=== PATIENT | male | born 1935 | race Caucasian/White ===

== ENCOUNTER → 2018-02-27 | Outpatient (CLI) | payer MEDICARE, OTHER ==
--- NOTE | 2018-02-27 15:39 | CT ---
EXAMINATION TYPE: CT chest wo con DATE OF EXAM: 02/27/2018 COMPARISON: NONE HISTORY: SOB and diffculty breathing CT DLP: 607 mGycm. Automated Exposure Control for Dose Reduction was Utilized. TECHNIQUE: CT scan of the thorax is performed without IV contrast. FINDINGS: LUNGS: There is changes of COPD. Interlobular septal thickening most noted involving the lung bases c ompatible with chronic interstitial lung disease. No pneumothorax or pleural effusion. No focal pneumonia. There are areas of pleural-based thickening. Less than 5 mm subpleural nodularity appears chronic. MEDIASTINUM: Lack of IV contrast is noted to limit evaluation for mediastinal and especially hilar ad enopathy. There are no definitive greater than 1 cm hilar or mediastinal lymph nodes. No cardiomega ly or pericardial effusion is seen. Coronary artery calcification and atherosclerotic change aorta. OTHER: Nonobstructing 5 mm right renal calculus. Arthropathy of the right sternoclavicular joint. Deg enerative and hypertrophic change of the spine with a mild superior endplate compression deformity in the midthoracic region which appears chronic. Small hiatal hernia noted. There are multiple tiny gal lstones. IMPRESSION: 1. Correlate for COPD and chronic interstitial lung disease such as pulmonary fibrosis. 2. Minimal subsegmental changes superior segment right lower lobe axial image 24. This may be on the basis of chronic inflammatory change rather than alveolitis or pneumonitis correlate clinically.. 3. Cholelithiasis. 4. Small hiatal hernia.
== END | disposition home or self-care (01) ==
LOC: RADCTMAIN 14:47
PROVIDERS: ATTEND Internal Medicine Sleep Medicine
DX: J84.10 Pulmonary fibrosis, unspecified (principal); K44.9 Diaphragmatic hernia without obstruction or gangrene; J44.9 Chronic obstructive pulmonary disease, unspecified; K80.20 Calculus of gallbladder without cholecystitis without obstruction; R91.8 Other nonspecific abnormal finding of lung field
CPT/HCPCS: 71250

== ENCOUNTER → 2019-01-09 | Outpatient (CLI) | payer MEDICARE, OTHER ==
--- NOTE | 2019-01-09 16:42 | CT ---
EXAMINATION TYPE: CT lumbar spine wo con DATE OF EXAM: 01/09/2019 COMPARISON: 05/18/2015 HISTORY: Spinal canal stenosis CT DLP: 1010.6 mGycm CONTRAST: None TECHNIQUE: CT of the lumbar spine is performed on a spiral scan at 3 mm thick sections. Reconstructed images are performed in the coronal and sagittal planes. FINDINGS: T12-L1: No focal disc herniation or significant disc bulge is evident. No spinal canal stenosis or neural foraminal stenosis is present. L1-L2: Mild disc bulging is anterior thecal sac compression. No AP spinal canal stenosis is present. Neural foramen are patent. L2-L3: Mild disc bulge has anterior thecal sac compression. Facet hypertrophy and ligamentum flavum l axity is mild posterior lateral thecal sac compression. Spinal canal stenosis present. Neural foramen may mild narrowing. L3-L4: Vacuum disc phenomenon is present. Broad-based disc bulge has mild anterior thecal sac flatten ing. No AP spinal canal stenosis narrowing may be present due to facet hypertrophy and ligamentum fla vum laxity. Moderate left and moderate to severe right foraminal stenosis may be present with the rad icular symptoms. L4-L5: Disc bulging is present. Facet hypertrophy and ligamentum flavum laxity are present. There florecita ears to be severe spinal canal stenosis. Facet hypertrophy is contributing to lateral recess stenosis . Severe bilateral foraminal stenosis is present. L5-S1: No focal disc herniation or significant disc bulge is evident. No disc bulge is present. No spinal canal stenosis or neural foraminal stenosis is present Vertebral alignment appears normal. Vascular calcifications within the aorta. There may be some minim al fusiform prominence of the distal abdominal aorta measuring 2.1 cm AP. IMPRESSION: 1. Severe spinal canal stenosis, stable from 2015, L4-5 due to disc bulging facet hypertrophy and lig amentum flavum laxity. Lateral recess stenosis is present at this level with facet hypertrophy. Julia inal narrowing is present. 2. Broad-based disc bulge and facet hypertrophy with ligamentum flavum laxity has some mild narrowing through the L3-4 level.
== END | disposition home or self-care (01) ==
LOC: RADCTMAIN 13:27
PROVIDERS: ATTEND Physical Medicine & Rehabilitation
DX: M48.061 Spinal stenosis, lumbar region without neurogenic claudication (principal); M99.73 Connective tissue and disc stenosis of intervertebral foramina of lumbar region; M51.16 Intervertebral disc disorders with radiculopathy, lumbar region; M46.96 Unspecified inflammatory spondylopathy, lumbar region; E78.5 Hyperlipidemia, unspecified; E03.9 Hypothyroidism, unspecified; I10 Essential (primary) hypertension
CPT/HCPCS: 72131

== ENCOUNTER → 2020-10-07 | Outpatient (CLI) | payer MEDICARE, OTHER ==
--- NOTE | 2020-10-08 16:25 | CT ---
EXAMINATION TYPE: CT cervical spine wo con DATE OF EXAM: 10/07/2020 COMPARISON: None HISTORY: neck pain, no injury CT DLP: 544 mGycm Automated exposure control for dose reduction was used. TECHNIQUE: CT scan of the cervical spine is obtained without contrast, axial images are obtained, sagittal and c oronal reformatted images are also reviewed. FINDINGS: Cervical vertebral bodies show preserved height. There is multilevel spondylosis, loss of disc height is present at C4-5, C5-6 and C6-7. There is multilevel facet arthropathy change. Cervical spine is visualized in its entirety from C1 through upper thoracic levels, demonstrates sati sfactory alignment without evidence of acute fracture or dislocation. Prevertebral soft tissue appea rs within normal limits. The C1-C2 articulation is within normal limits on the coronal images. C2-3: facet arthropathy result in right-sided foraminal encroachment , no significant spinal stenosis or evident disc herniation C3-4: Posterior broad-based disc bulge causes mild anterior mass effect on the thecal sac. No signifi cant spinal stenosis. Uncovertebral joint hypertrophy and facet arthropathy result in right-sided for aminal encroachment. C4-5: Posterior extension endplate disc complex causes mild anterior mass effect on the thecal sac. T here is foraminal encroachment present on the left due to uncovertebral joint hypertrophy and facet a rthropathy. No significant spinal stenosis. C5-6: Posterior extension endplate disc complex causes anterior mass effect on the thecal sac, there is a mild to moderate spinal stenosis. Bilateral foraminal encroachment is present. C6-7: Posterior extension of endplate disc complex causes anterior mass effect on the thecal sac, mil d to moderate spinal stenosis. There is bilateral foraminal encroachment left greater than right. C7-T1: No significant spinal stenosis. No foraminal encroachment. No evident disc herniation. IMPRESSION: Degenerative disc disease, facet arthropathy, multilevel foraminal encroachment and spina l stenosis. There is no acute fracture or dislocation evident in the cervical spine.
== END | disposition home or self-care (01) ==
LOC: RADCTMAIN 16:54
PROVIDERS: ATTEND Physical Medicine & Rehabilitation
DX: M48.02 Spinal stenosis, cervical region (principal); M50.10 Cervical disc disorder with radiculopathy, unspecified cervical region; M47.22 Other spondylosis with radiculopathy, cervical region
CPT/HCPCS: 72125

== ENCOUNTER → 2021-06-14 | Outpatient (CLI) | payer MEDICARE, OTHER ==
[2021-06-14 08:23] VITALS: BP 137/71; PULSE 68; RESP 16; TEMP 97.7
--- NOTE | 2021-06-14 08:38 | P.PAINCN ---
History of Present Illness - Reason for Consult Consult date: 06/14/21 - History of Present Illness This is a 86-year-old patient referred by Dr. Levy with a chief complaint of chronic pain in his back and neck. He has a history of heart stents on plavix. He has had a number of procedures at the [facility]. He most recently had a bilateral L4 transforaminal epidural steroid injection on March 2021 with 50% of improvement for one week. Pain is located over the low back with associated paresthesias in his feet as long as well as bilateral lower extremity weakness. He is also undergone caudal epidural steroid injections as well as bilateral lumbar radiofrequency ablations with Dr. Zelaya last year in which there is 75% overall improvement of these procedures. The RFA's were helpful for 5-6 months. Pain is made worse with walking and standing. He is an avid golfer and it has been limiting his functionality significant. Pain is made better with rest. He has a prescription for aqua therapy but has not gone yet. He does home exercises and tries to be active. Patient also denies new-onset weakness, bowel/bladder incontinence, or any other signs or symptoms of cauda equina syndrome. There are no signs of acute intoxication, and no indications of medication diversion or overuse. In addition to above, 13-point review of systems is also negative for chest pain, shortness of breath, changes in vision, changes in hearing, new onset weakness, abdominal pain, diarrhea, extreme fatigue, malaise, fever, skin changes, homicidal or suicidal ideation, or bowel or bladder incontinence. Physical exam: Vital Signs: Reviewed in EMR GENERAL: Well appearing, in no acute distress PSYCH: Mood and affect is appropriate. Awake, alert, and oriented SKIN: Skin color, texture, turgor normal, no rashes or lesions HEENT: Normocephalic, atraumatic. EOM intact CV: No pedal edema RESP: Respirations are unlabored, no audible wheezing GI: Abdomen non-distended MUSCULOSKELETAL: Weakness with bilateral plantarflexion and hip flexion No atrophy or tone abnormalities are noted. Lumbar spine: Straight leg raising in the sitting position is negative for radicular pain. There is pain to palpation over the lumbar spine and paraspinous muscles. Positive for pain with facet loading and back extension/rotation. Decreased ROM on bilateral hip flexion. Buttocks: No pain to palpation over the PSIS, Lisset test is negative Extremities: Peripheral joint ROM is limited and painful in bilatera hips.no obvious instability or laxity in all four extremities. No edema or skin discolorations noted. Gait: Gait is slow NEUR: Bilateral upper and lower extremity coordination and muscle stretch reflexes are physiologic and symmetric. Negative clonus. No loss of sensation is noted. Cranial nerves are grossly intact. Imaging: Lumbar MRI There is severe spinal canal stenosis at L4-L5 with disc bulging, facet hypertrophy, ligamentum flavum laxity. There is also broad-based disc bulge with some mild narrowing at L3-L4. Cervical CT scan Facet arthropathy broad-based disc bulges and mild to moderate spinal canal stenosis throughout the cervical spine. EMG shows radiculopathy chronically L5 and S1 bilaterally. Assessment: 1. Lumbar spondylosis 2. Lumbar spinal stenosis 3. Cervical spondylosis Plan: 1. Explanation: Diagnoses, prognoses, and multiple treatment options including but not limited to physical therapy, interventional therapies, medication man agement and surgery were discussed with the patient and all questions were answered to the patient's satisfaction. 2. Investigations: none 3. Counseling: The patient was counseled for 3 minutes on SMOKING CESSATION, BODY MASS INDEX, EXERCISE. Specifically, the patient was instructed regarding the importance of smoking cessation, weight control, and exercise in the context of both chronic pain and overall health. 4. Procedures: We will perform L4-L5 L5-S1 radio frequency ablation as Dr. Levy suggested. His other procedures such as transforaminal epidurals and caudal epidural steroid injections only been helpful for about a week at a time. If these are not helpful I do not believe he'd be a good procedure candidate moving forward as he has had many with limited relief. Possibly related to his severe stenosis at L4-5. 5. Consultations: None 6. Medications: None 7. Disposition: for above procedure I spent 50 minutes on patient care today. The time was used to review medical records including relevant urine studies and prescription history (MAPs), review of the available imaging, evaluation and examination the patient, coordination of care at the medical staff and if applicable referring physicians, as well as creation of the medical record. Past Medical History Past Medical History: Coronary Artery Disease (CAD), GERD/Reflux, Hyperlipidemia, Hypertension, Myocardial Infarction (VA), Thyroid Disorder Additional Past Medical History / Comment(s): VA X2 (1994), BPH, HYPOTHYROID Last Myocardial Infarction Date:: 1994 History of Any Multi-Drug Resistant Organisms: None Reported Past Surgical History: Heart Catheterization With Stent Additional Past Surgical History / Comment(s): INJECTIONS FOR BACK PAIN ([facility].) Additional Past Anesthesia/Blood Transfusion Reaction / Comm: NO ANESTHESIA HX.,CLAUSTROPHOBIC. Date of Last Stent Placement:: 1994 Past Psychological History: No Psychological Hx Reported Smoking Status: Former smoker Past Alcohol Use History: Rare Additional Past Alcohol Use History / Comment(s): QUIT SMOKING 1992, SMOKED 40 YEARS. Past Drug Use History: None Reported - Past Family History Mother Family Medical History: Cancer Additional Family Medical History / Comment(s): STOMACH CANCER Medications and Allergies Home Medications Medication Instructions Recorded Confirmed Type Acetaminophen [Tylenol Extra 500 mg PO DAILY PRN 06/12/21 06/12/21 History Strength] Aspirin [Adult Low Dose Aspirin EC] 81 mg PO HS 06/12/21 06/12/21 History Cholecalciferol [Vitamin D3 (25 25 mcg PO DAILY 06/12/21 06/12/21 History Mcg = 1000 Iu)] Clopidogrel [Plavix] 75 mg PO HS 06/12/21 06/12/21 History Cyanocobalamin (Vitamin B-12) 2,500 mcg PO DAILY 06/12/21 06/12/21 History [Vitamin B-12] Famotidine [Pepcid] 20 mg PO BID 06/12/21 06/12/21 History Finasteride [Proscar] 5 mg PO HS 06/12/21 06/12/21 History Simvastatin 40 mg PO DAILY 06/12/21 06/12/21 History Tamsulosin HCl [Flomax] 0.8 mg PO HS 06/12/21 06/12/21 History hydroCHLOROthiazide 25 mg PO DAILY 06/12/21 06/12/21 History lisinopriL 20 mg PO DAILY 06/12/21 06/12/21 History Allergies Allergy/AdvReac Type Severity Reaction Status Date / Time morphine Allergy Unknown swelling, Verified 06/12/21 14:31 rash steroid Allergy Unknown stomach Uncoded 06/12/21 14:31 pain PQRS Measure Charge Sheet PQRS Narrative: Pain Intensity [Lower Back] 5 Scale Used Numeric (1 - 10) Home Medications: Ambulatory Orders Acetaminophen [Tylenol Extra Strength] 500 mg PO DAILY PRN 06/12/21 Aspirin [Adult Low Dose Aspirin EC] 81 mg PO HS 06/12/21 Cholecalciferol [Vitamin D3 (25 Mcg = 1000 Iu)] 25 mcg PO DAILY 06/12/21 Clopidogrel [Plavix] 75 mg PO HS 06/12/21 Cyanocobalamin (Vitamin B-12) [Vitamin B-12] 2,500 mcg PO DAILY 06/12/21 Famotidine [Pepcid] 20 mg PO BID 06/12/21 Finasteride [Proscar] 5 mg PO HS 06/12/21 Simvastatin 40 mg PO DAILY 06/12/21 Tamsulosin HCl [Flomax] 0.8 mg PO HS 06/12/21 hydroCHLOROthiazide 25 mg PO DAILY 06/12/21 lisinopriL 20 mg PO DAILY 06/12/21
== END ==
LOC: PNWHC3 07:54
PROVIDERS: ATTEND Anesthesiology
DX: M47.816 Spondylosis without myelopathy or radiculopathy, lumbar region (principal); M48.061 Spinal stenosis, lumbar region without neurogenic claudication; M47.812 Spondylosis without myelopathy or radiculopathy, cervical region; E78.5 Hyperlipidemia, unspecified; I10 Essential (primary) hypertension; I25.2 Old myocardial infarction; E03.8 Other specified hypothyroidism; I25.10 Atherosclerotic heart disease of native coronary artery without angina pectoris; Z87.891 Personal history of nicotine dependence; Z79.82 Long term (current) use of aspirin; Z79.899 Other long term (current) drug therapy; Z88.5 Allergy status to narcotic agent; Z88.8 Allergy status to other drugs, medicaments and biological substances
CPT/HCPCS: 99212

== ENCOUNTER 2021-07-07 09:19 | Day surgery (SDC) | payer MEDICARE, OTHER ==
[2021-07-06 11:00] VITALS: BMI 28.7
[2021-07-07 09:40] VITALS: TEMP 97.8
[2021-07-07] MEDS ORDERED: LACTATED RINGERS 1,000 ML IV ONE ×3 (09:40→10:40)
[2021-07-07] MEDS ORDERED: ROPIVACAINE 5MG/ML 20ML VIAL ONE (10:04)
[2021-07-07] MEDS ORDERED: LIDOCAINE 1% INJ 10MG/ML (20 ML MDV) ONE (10:04)
[2021-07-07] MEDS ORDERED: MIDAZOLAM 2 MG/2 ML VIAL ONE (10:04)
[2021-07-07] MEDS ORDERED: fentaNYL (PF) 50 MCG/ML 2 ML AMP ONE (10:04)
--- NOTE | 2021-07-07 10:43 | FL ---
Fluoroscopy INDICATION: Pain FINDINGS: Fluoroscopy time: 19 seconds. Images obtained: 6. IMPRESSIONS: 1. Documentation of fluoroscopy.
[2021-07-07 10:57] VITALS: BP 128/60; PULSE 55; RESP 16
[2021-07-07] MEDS ORDERED: IV FLUID CONTINUATION 700 ML IV ONE (11:00)
--- NOTE | 2021-07-24 14:15 | P.PCN ---
Date of Procedure: 07/07/21 Description of Procedure: PREOPERATIVE DIAGNOSIS: Lumbar Spondylosis POSTOPERATIVE DIAGNOSIS: Same PROCEDURES: Radiofrequency ablation of the L3, L4, L5 medial branches with fluoroscopic guidance bilaterally SURGEON: James Nj MD. ANESTHESIA: Lidocaine 1% 5 mL, Monitored anesthesia care with anesthesia team EBL: Minimal Fluoroscopy was used for the procedure and images were saved in the radiology portion of the chart. PROCEDURE INDICATION: The patient with low back pain secondary to lumbar facet arthropathy who had more than 50% relief of pain with previous diagnostic lumbar medial branch block X2. PROCEDURE DESCRIPTION / TECHNIQUE: The patient was seen and identified in the preoperative area. Risks, benefits, complications, including but not limited to risk of infection ,bleeding , allergic reactions to the medications and incomplete pain relief , and alternatives were discussed with the patient, the patient agreed to proceed with the procedure and signed the consent. IV was started. The operative site was marked. Patient was taken to the OR and time out was completed. The patient was placed in the prone position on the procedure table. The lumbar area was prepped and draped in the usual sterile fashion. . Vital signs were closely monitored during the procedure .IV sedation was used during the procedure to decrease patients anxiety. Using AP and then oblique fluoroscopy, the "eye of the Mathew dog" corresponding to the connection between the superior and transverse articular processes of the L4 and L5 as well as the sacral ala were identified, marked, and localized with 1% lidocaine. Subsequently, an 18 guage 100 mm radiofrequency cannula with a 10-mm active tip was advanced guided by fluoroscopy to the identified target at each site. Needle positioning was confirmed on AP, oblique and lateral fluoroscopy. Motor testing at 2.5 Hz was done with paraspinal muscle stimulation only, and no radicular symptoms down the legs. Then 1 mL 0.5% ropivacaine was injected in each site. Radiofrequency thermocoagulation at 80 degrees celsius for 90 seconds was then performed. [place] were removed. Sterile dressings were applied. COMPLICATIONS: No acute complications. DISPOSITION / PLANS: The patient was placed in a supine position and transferred to the recovery area in a stable condition for observation and was discharged from the recovery room after meeting discharge criteria. Home discharge instructions given to the patient by the staff. The patient will follow up in clinic in 4 weeks.
== END 2021-07-07 11:15 | disposition home or self-care (01) ==
LOC: ORPAIN 09:19
PROVIDERS: ATTEND Anesthesiology
DX: M47.817 Spondylosis without myelopathy or radiculopathy, lumbosacral region (principal)
CPT/HCPCS: 64635; 64636; J2250; J2001; J3010; J2795

== ENCOUNTER → 2021-08-07 | Outpatient (CLI) | payer MEDICARE, OTHER ==
[2021-08-07 13:48] VITALS: BP 156/61; PULSE 61; RESP 18; TEMP 98.1
--- NOTE | 2021-08-07 13:59 | P.PN ---
Subjective Progress Note Date: 08/07/21 This is a follow-up visit for this 86 years old male with a chronic history of severe low back pain,he is diagnosed with lumbar degenerative disc disease, lumbar spondylosis with lumbar facet arthropathy without myelopathy, lumbar spinal stenosis, recently we have done RFA of the medial branch lumbar area, continued to have severe low back pain which is constant and increases with any activity interference with the quality of life, he feels some weakness in his lower extremity but he is able to ambulate, denies any fever or night sweats he denies any change in bowel movement or urination Objective - Vital Signs Vital signs: Vital Signs Temp 98.1 F 08/07/21 13:42 Pulse 61 08/07/21 13:42 Resp 18 08/07/21 13:42 BP 156/61 08/07/21 13:42 Pulse Ox - Exam Physical Examinations : -Constitutiona : Cooperative , not in acute distress . -HEENT : nech : supple , no Lymphadenopathy , normal thyroid size . : eyes : no ptosis , no icterus, no photophobia . - neurologic : Cranial nerve II to XII intact , no focal neurological deffecit . -psychatric : alert , oriented X 3 , appropriate affect , intact judgment and insight . -Lymphatic : no Lymphadenopathy . - musculoskeltal : Lumber spine moter stegnth lower extremities ,thigh and legs 4/5 Right side , 4/5 Left side deep tendon reflexes : normal Knee Jerk , normal ankle Jerk lumber facet Loading Test =positive Right , positive Left Range of motion of the lumbar spine Flexion 30 degrees, extension 10 degrees strait leg raising test = positive at 60 degree Fabere test= negative bilaterally . MRI of the lumbar spine= 2 level lumbar degenerative disc disease multilevel lumbar spondylosis with facet arthropathy and multilevel lumbar spinal stenosis Assessment and Plan Plan: Assessment and plan=1-lumbar spondylosis with lumbar facet arthropathy. 2-lumbar spinal stenosis. 3-Umber degenerative disc disease. She could benefit from lumbar epidural steroid injection at L4-L5 or L5-S1 had to hold Plavix for 1 week before the procedure Time with Patient: Less than 30
== END ==
LOC: PNWHC3 13:09
PROVIDERS: ATTEND Specialist
DX: M47.816 Spondylosis without myelopathy or radiculopathy, lumbar region (principal); M48.061 Spinal stenosis, lumbar region without neurogenic claudication; M51.36 Other intervertebral disc degeneration, lumbar region; Z88.5 Allergy status to narcotic agent
CPT/HCPCS: 99211

== ENCOUNTER 2021-10-03 11:23 | Day surgery (SDC) | payer MEDICARE, OTHER ==
[2021-09-29 15:17] VITALS: BMI 27.2
[~2021-10-03 11:23] MED LIST: LACTATED RINGERS 1,000 ML IV SCH
[2021-10-03 12:27] VITALS: RESP 16; TEMP 97
[2021-10-03] MEDS ORDERED: fentaNYL (PF) 50 MCG/ML 2 ML AMP ONE (12:42)
[2021-10-03] MEDS ORDERED: MIDAZOLAM 2 MG/2 ML VIAL ONE (12:42)
[2021-10-03] MEDS ORDERED: IOPAMIDOL M200 10 ML VIAL ONE (12:42)
[2021-10-03] MEDS ORDERED: methylPREDNISolone ACETATE 40 MG/ML 1 ML VIAL ONE (12:42)
--- NOTE | 2021-10-03 12:57 | P.PCN ---
Date of Procedure: 10/03/21 Procedure(s) Performed: PREOPERATIVE DIAGNOSIS: 1- Lumbar Degenerative Disc Diseases 2-Lumbar spondylosis with Facet arthropathy without myelopathy 3-lumbar spinal stenosis POSTOPERATIVE DIAGNOSIS: Same as preop diagnosis. PROCEDURE 1. Lumbar epidural steroid injection under fluoroscopic guidance at the L5-S1 level. (Fluoroscopy imaging was available in radiology department) 2. Lumbar epidurogram. ANESTHESIA: Local with 1% lidocaine 3 ml and , moderate sedation with intravenous Versed 1 mg ,and fentanyle 50 Mcg EBL: Minimal PROCEDURE INDICATION: The patient with low back pain and radiculitis symptoms unresponsive to conservative treatment. Fluoroscopy was used to optimize visualization of the needle placement and to maximize safety. PROCEDURE DESCRIPTION / TECHNIQUE: The patient was seen and identified in the preoperative area. Risks, benefits, complications including but not limited to infections ,bleeding ,allergic reaction to the medications ,nerve damage and not complete pain releife , and alternatives were discussed with the patient. The patient agreed to proceed with the procedure and signed the consent. IV was started, and vital signs were stable. Patient was taken to the OR and time out was completed. The patient was placed in the prone position on procedure table and a pillow was placed under the abdomen to reduce lumbar lordosis. The lumbosacral area was prepped and draped in the usual sterile fashion.ere closely monitored during the procedure. Conscious sedation was used during the procedure to decrease patients anxiety. Vital signs was monitered during the entire procedure. Using anterior-posterior fluoroscopy, the L5-S1 interlaminar space was identified and the skin over this site was marked and then infiltrated with 1% lidocaine subcutaneously. Subsequently, a 18-gauge Tuohy epidural needle was inserted and advanced toward the epidural space using the ``Loss of resistance technique and guided by AP and lateral fluoroscopy. The correct needle position in the epidural space was verified with the injection of 2 mL of the water soluble contrast dye Isovue 200 contrast and observing an excellent epidurogram with the epidural spread of the dye, after negative aspiration for blood and CSF and in the absence of paresthesias. Again after negative aspiration, a 6 ml mixture containing 40 mg of Depo-medrol , and 2 ml of preservative free Normal Saline, and 2 ml of preservative free lidocaine 1% solution was injected and a washout of epidurogram was seen. Needle was withdrawn intact, skin was cleansed, and bandages were applied. note= multiple attempts done to do the procedure at L4 5 levele , it was not successful, then the procedure was done at L5-S1 level COMPLICATIONS: None DISPOSITION / PLANS: The patient was placed in a supine position and transferred to the recovery area in a stable condition for observation. There was no evidence of lower extremity motor or sensory deficit after the procedure. Patient was discharged from the recovery room after meeting discharge criteria. Home discharge instructions were given to the patient by the staff. The patient was reexamined prior to discharge. The patient will schedule a follow up in the clinic in 2-4 weeks.
[2021-10-03] MEDS ORDERED: IV FLUID CONTINUATION 800 ML IV ONE (13:00)
--- NOTE | 2021-10-03 13:46 | FL ---
EXAMINATION TYPE: FL guided pain mgmt statistic DATE OF EXAM: 10/03/2021 CLINICAL HISTORY: Low back pain. TECHNIQUE: Fluoroscopy. COMPARISON: None. FINDINGS: Fluoroscopic guidance was provided during pain relief procedure performed by Dr. Feliz . A total of 15 seconds of fluoroscopic time was utilized during the procedure and 1 spot images are acquired. Single image acquired shows needle localization at L5 level with contrast injection. IMPRESSION: As Above.
[2021-10-03 13:47] VITALS: BP 140/71; PULSE 59
== END 2021-10-03 14:00 | disposition home or self-care (01) ==
LOC: ORPAIN 11:23
PROVIDERS: ATTEND Specialist
DX: M47.26 Other spondylosis with radiculopathy, lumbar region (principal); M51.16 Intervertebral disc disorders with radiculopathy, lumbar region; Z88.5 Allergy status to narcotic agent; Z88.8 Allergy status to other drugs, medicaments and biological substances
CPT/HCPCS: 62323; J2250; J1030; J3010; Q9966; 99152

== ENCOUNTER 2021-11-14 11:40 | Day surgery (SDC) | payer MEDICARE, OTHER ==
[2021-11-10 15:25] VITALS: BMI 27.5
[2021-11-14] MEDS ORDERED: LACTATED RINGERS 1,000 ML IV ONE (12:26)
[2021-11-14 12:28] VITALS: RESP 16; TEMP 97.9
[2021-11-14] MEDS ORDERED: IOPAMIDOL M200 10 ML VIAL ONE (13:01)
[2021-11-14] MEDS ORDERED: methylPREDNISolone ACETATE 40 MG/ML 1 ML VIAL ONE (13:01)
[2021-11-14] MEDS ORDERED: fentaNYL (PF) 50 MCG/ML 2 ML AMP ONE (13:01)
[2021-11-14] MEDS ORDERED: MIDAZOLAM 2 MG/2 ML VIAL ONE (13:01)
--- NOTE | 2021-11-14 13:24 | P.PCN ---
Date of Procedure: 11/14/21 Description of Procedure: Procedure: 1. L5-S1 Epidural steroid injection under fluoroscopic guidance # 2/3 , 2. Lumbar epidurogram PREOPERATIVE DIAGNOSIS: Lumbar degenerative disc disease, and Lumbar radiculopathy. POSTOPERATIVE DIAGNOSIS: Lumbar degenerative disc disease, and Lumbar radiculopathy. SURGEON: Kamini Onofre ANESTHESIA: Local with 1% lidocaine, and IV sedation as per anesthesia record EBL: None. Specimen removed: None Fluoroscopic image: saved to electronic medical records PROCEDURE INDICATION: The patient had history of Lumbar degenerative disc disease and Lumbar radiculopathy. Patient had more than 70% pain relief with the previous epidural steroid injection for 3 weeks duration. Failed to conservative therapy. Presented for epidural steroid injection. PROCEDURE DESCRIPTION: The patient was seen and identified in the preoperative area. Risks, benefits, complications, and alternatives were discussed with the patient. The patient agreed to proceed with the procedure and signed the consent. IV was started, and vital signs were stable. Patient was taken to the procedure area, and time out was completed. The patient was placed in the prone position on procedure table and a pillow was placed under the abdomen to reduce lumbar lordosis. The lumbosacral area was prepped and draped in the usual sterile fashion. Critical pause was taken. Vital signs were closely monitored during the procedure. Using anterior-posterior fluoroscopy, the L5-S1 interlaminar space was identified, and skin and deeper tissues were localized with 1% lidocaine. Using anterior-posterior fluoroscopy, lateral fluoroscopy, and tibh-gu-yxebxquphm technique, a 20 gauge 3.5 Tuohy epidural needle entered the epidural space. After negative aspiration of CSF and blood with no paresthesias, 3 ml of [id number] contrast dye was injected and an excellent epidurogram was seen. Again after negative aspiration of CSF and blood with no paresthesias, 8 mL of block solution was injected into the epidural space. Block solution contained 80 mg of Depo-Medrol, and 7 mL of preservative-free normal saline. Needle was withdrawn intact, skin was cleansed, and bandages were applied. COMPLICATIONS: None. DISPOSITION / PLANS: The patient was placed in a supine position and transferred to the recovery area in a stable condition for observation. Patient was discharged from the recovery room after meeting discharge criteria. Home discharge instructions given to the patient by the staff. The patient was reexamined prior to discharge. The patient will schedule a follow up in the clinic in 4 weeks.
[2021-11-14] MEDS ORDERED: IV FLUID CONTINUATION 600 ML IV ONE (13:26)
[2021-11-14] MEDS ORDERED: LACTATED RINGERS 1,000 ML IV SCH (13:30)
[2021-11-14 13:50] VITALS: BP 158/68; PULSE 55
--- NOTE | 2021-11-14 14:03 | FL ---
EXAMINATION TYPE: FL guided pain mgmt statistic DATE OF EXAM: 11/14/2021 CLINICAL HISTORY: Low back pain. TECHNIQUE: Fluoroscopy. COMPARISON: None. FINDINGS: Fluoroscopic guidance was provided during pain relief procedure performed by Dr. Onofre . A total of 10 seconds of fluoroscopic time was utilized during the procedure and two spot images ar e acquired. Images acquired shows needle localization with contrast injection from posterior approac h near the lumbosacral junction. IMPRESSION: As Above.
== END 2021-11-14 14:11 | disposition home or self-care (01) ==
LOC: ORPAIN 11:40
DX: M54.16 Radiculopathy, lumbar region (principal); M51.36 Other intervertebral disc degeneration, lumbar region
CPT/HCPCS: 62323; J2250; J1030; J3010; Q9966; 99152

== ENCOUNTER → 2021-12-11 | Outpatient (CLI) | payer MEDICARE, OTHER ==
[2021-12-11 14:55] VITALS: BP 150/81; PULSE 60; RESP 18; TEMP 95.2
--- NOTE | 2021-12-11 15:04 | P.PN ---
Subjective Progress Note Date: 12/11/21 Principal diagnosis: A 86 yr old male with at side, with a history of severe and chronic low back pain secondary to lumbar degenerative disc diseases and lumbar spondylosis with facet arthropathy presents today for evaluation s/p second LESI. Pt completed L5-S1 LESI on 11/14/21 and is feeling 60% pain relief. Pain level is 3 /10 currently with pain dull/ achy in the center of his lower back and sometimes sharp/ shooting towards the hips bilaterally. It is constant for the last 7 years ever since he fell on his bottom. Pain is provoked by standing, lifting or walking. Pain is alleviated with injections. Pt did physical therapy "a few years ago" and has not tried chiropractic treatments. He does not use a back brace or has had massage. Patient denies any side effects of the medication(s), denies excessive drowsiness or sleepiness, denies suicidal ideation and reports that the current pain medication is helping to control the pain and improve activities of daily living. Patient denies any motor or sensory deficits. Patient denies any fever or night sweats, denies any change in the bowel movements or urination. Physical Examination: -Constitutional: Cooperative. Not in acute distress . -HEENT: Neck is supple. No lymphadenopathy. No thyromegaly. Normal thyroid size. Eyes: No ptosis , no icterus, no photophobia. ENT: No auditory deficits. Normal oropharynx. No Thrush. - Respiratory: Chest clear to auscultations bilaterally. No wheezing. No rhonchi. - Cardiovascular: Regular rate and rhythm. S1 / S2 , no S3 , no S4. - Gastrointestinal: Abdomen soft no tenderness. Bowel sounds positive in all four quadrants. No organomegaly. - Genitourinary: Deferred. - Neurologic: Cranial nerve II to XII intact. No focal neurological deficits. - Psychatric: Alert & oriented x 3. Matching mood & appropriate affect. Judgment and insight intact. - Lymphatic: No Lymphadenopathy. - Musculoskeletal: Cervical spine: Muscle bulk/ tone/ strength in the bilateral upper extremities normal. Facet loading test cervical area positive. Lumbar spine: Motor bulk/ tone/ strength lower extremities , thigh and legs : age appropriate Deep tendon reflexes : Normal Knee Jerk. Normal Ankle Jerk . Lumbar Facet Loading Test positive Straight Leg Raise: positive at 30 degree right side/ left side Lisset test: positive right side / left side Range of motion: Flexion of the lumbar spine <60 degrees Range of motion: Extension of the lumbar spine <20 degrees Severe tenderness over the Sacroiliac joint: right side / left side Assessment and plan: Chronic low back pain secondary to lumbar degenerative disc disease , lumbar spondylosis with facet arthropathy without myelopathy Recommendation of L5-S1 LESI, 3rd Risks/ benefits of procedure discussed and pt verbalized understanding All patient questions answered MAPS reviewed and it was appropriate. I have spent 31 minutes on patient care today. Dr Feliz was available by phone for the evaluation of this patient. The time was used to review the medical records including relevant urine studies and Prescription history (MAPs), review of the available imaging, evaluation and examination of the patient, coordination of care with the medical staff and if applicable referring physicians, as well as creation of the medical record PQRS Measure Charge Sheet Mode of Arrival: Ambulatory - Pain Location Lower Back Non-Pharmacological Interventions: Inactivity, Physical Therapy, Position/Reposition Pharmacological Interventions: Epidural, Topical Medication PQRS Narrative: Blood Pressure 150/81 Pain Intensity [Lower Back] 3 Scale Used Numeric (1 - 10) Hx Alcohol Use (MH) Yes: rare Home Medications: Ambulatory Orders Cholecalciferol [Vitamin D3 (25 Mcg = 1000 Iu)] 25 mcg PO DAILY 06/12/21 Clopidogrel [Plavix] 75 mg PO HS 06/12/21 Cyanocobalamin (Vitamin B-12) [Vitamin B-12] 2,500 mcg PO DAILY 06/12/21 Famotidine [Pepcid] 20 mg PO BID 06/12/21 Finasteride [Proscar] 5 mg PO HS 06/12/21 Tamsulosin HCl [Flomax] 0.8 mg PO HS 06/12/21 hydroCHLOROthiazide 25 mg PO DAILY 06/12/21 lisinopriL [Prinivil] 20 mg PO DAILY 06/12/21
== END ==
LOC: PNWHC3 13:01
PROVIDERS: ATTEND Physician Assistant Medical
DX: M51.36 Other intervertebral disc degeneration, lumbar region (principal); M47.816 Spondylosis without myelopathy or radiculopathy, lumbar region; G89.29 Other chronic pain; Z88.6 Allergy status to analgesic agent; Z88.8 Allergy status to other drugs, medicaments and biological substances
CPT/HCPCS: 99211

== ENCOUNTER 2022-02-01 08:04 | Day surgery (SDC) | payer MEDICARE, OTHER ==
[2022-01-31 11:28] VITALS: BMI 26.9
[2022-02-01 08:30] VITALS: TEMP 96.4
[2022-02-01] MEDS ORDERED: LIDOCAINE 1% (10MG/ML) FOR IV START INTRADERMA ONE (08:41)
[2022-02-01] MEDS ORDERED: methylPREDNISolone ACETATE 40 MG/ML 1 ML VIAL ONE (09:17)
[2022-02-01] MEDS ORDERED: MIDAZOLAM 2 MG/2 ML VIAL ONE (09:17)
[2022-02-01] MEDS ORDERED: IOPAMIDOL M200 10 ML VIAL ONE (09:17)
[2022-02-01] MEDS ORDERED: fentaNYL (PF) 50 MCG/ML 2 ML AMP ONE (09:17)
--- NOTE | 2022-02-01 09:28 | P.PCN ---
Date of Procedure: 02/01/22 Procedure(s) Performed: PREOPERATIVE DIAGNOSIS: 1- Lumbar Degenerative Disc Diseases 2-Lumbar spondylosis with Facet arthropathy without myelopathy 3-lumbar spinal stenosis POSTOPERATIVE DIAGNOSIS: Same as preop diagnosis. PROCEDURE 1. Lumbar epidural steroid injection under fluoroscopic guidance at the L5-S1 level. (Fluoroscopy imaging was available in radiology department) 2. Lumbar epidurogram. ANESTHESIA: Local with 1% lidocaine 3 ml and , moderate sedation with intraven ous Versed 1 mg ,and fentanyle 50 Mcg EBL: Minimal PROCEDURE INDICATION: The patient with low back pain and radiculitis symptoms unresponsive to conservative treatment. Fluoroscopy was used to optimize visualization of the needle placement and to maximize safety. PROCEDURE DESCRIPTION / TECHNIQUE: The patient was seen and identified in the preoperative area. Risks, benefits, complications including but not limited to infections ,bleeding ,allergic reaction to the medications ,nerve damage and not complete pain releife , and alternatives were discussed with the patient. The patient agreed to proceed with the procedure and signed the consent. IV was started, and vital signs were stable. Patient was taken to the OR and time out was completed. The patient was placed in the prone position on procedure table and a pillow was placed under the abdomen to reduce lumbar lordosis. The lumbosacral area was prepped and draped in the usual sterile fashion.ere closely monitored during the procedure. Conscious sedation was used during the procedure to decrease patients anxiety. Vital signs was monitered during the entire procedure. Using anterior-posterior fluoroscopy, the L5-S1 interlaminar space was identified and the skin over this site was marked and then infiltrated with 1% lidocaine subcutaneously. Subsequently, a 20-gauge Tuohy epidural needle was inserted and advanced toward the epidural space using the ``Loss of resistance technique and guided by AP and lateral fluoroscopy. The correct needle position in the epidural space was verified with the injection of 2 mL of the water soluble contrast dye Isovue 200 contrast and observing an excellent epidurogram with the epidural spread of the dye, after negative aspiration for blood and CSF and in the absence of paresthesias. Again after negative aspiration, a 6 ml mixture containing 40 mg of Depo-medrol , and 2 ml of preservative free Normal Saline, and 2 ml of preservative free lidocaine 1% solution was injected and a washout of epidurogram was seen. Needle was withdrawn intact, skin was cleansed, and bandages were applied. note= multiple attempts done to do the procedure at L4 5 levele , it was not successful, then the procedure was done at L5-S1 level COMPLICATIONS: None DISPOSITION / PLANS: The patient was placed in a supine position and transferred to the recovery area in a stable condition for observation. There was no evidence of lower extremity motor or sensory deficit after the procedure. Patient was discharged from the recovery room after meeting discharge criteria. Home discharge instructions were given to the patient by the staff. The patient was reexamined prior to discharge. The patient will schedule a follow up in the clinic in 2-4 weeks.
[2022-02-01] MEDS ORDERED: IV FLUID CONTINUATION 1,000 ML IV ONE (09:36)
--- NOTE | 2022-02-01 09:37 | FL ---
EXAMINATION TYPE: FL guided pain mgmt statistic DATE OF EXAM: 02/01/2022 HISTORY: Fluoroscopy time 4 seconds of fluoroscopy provided. IMPRESSION: 1. Fluoroscopy time.
[2022-02-01 09:57] VITALS: BP 139/70; PULSE 62; RESP 18
== END 2022-02-01 10:07 | disposition home or self-care (01) ==
LOC: ORPAIN 08:04
PROVIDERS: ATTEND Specialist
DX: M51.36 Other intervertebral disc degeneration, lumbar region (principal); M48.061 Spinal stenosis, lumbar region without neurogenic claudication; M47.816 Spondylosis without myelopathy or radiculopathy, lumbar region; M51.16 Intervertebral disc disorders with radiculopathy, lumbar region; Z79.02 Long term (current) use of antithrombotics/antiplatelets; Z88.5 Allergy status to narcotic agent; I25.10 Atherosclerotic heart disease of native coronary artery without angina pectoris
CPT/HCPCS: 62323; J2250; J1030; J3010; Q9966; 99152

== ENCOUNTER → 2022-02-14 | Outpatient (CLI) | payer MEDICARE, OTHER ==
[2022-02-14 14:16] VITALS: BP 117/73; PULSE 88; RESP 18; TEMP 98.7
--- NOTE | 2022-02-14 14:41 | P.PN ---
Subjective Progress Note Date: 02/14/22 Principal diagnosis: A 86 yr old male with at side with a history of severe and chronic low back pain secondary to lumbar degenerative disc diseases and lumbar spondylosis with facet arthropathy presents today for evaluation status post LESI L5-S1 #3. Patient states he experienced 60% pain relief status post procedure. Pain level is 2 out of 10 in intensity, localized in the lower aspects of the lumbar spine, pressure-type sensation in the center. Denies radiation of pain. Pain is provoked by climbing ladders, cold weather and lifting. Pain is alleviated with injections, stretching, walking, use of a reclining chair and rest. Patient is not interested in taking medications, using ice or heat, or participating in physical therapy or chiropractic treatments. Interventional pain procedures completed include LESI L5-S1 3. Bilateral RFA L4-L5, L5-S1. Patient is currently on DENIES. Patient denies any side effects of the medication(s), denies excessive drowsiness or sleepiness, denies suicidal ideation and reports that the current pain medication is helping to control the pain and improve activities of daily living. Patient denies any motor or sensory deficits. Patient denies any fever or night sweats, denies any change in the bowel movements or urination. Physical Examination: -Constitutional: Cooperative. Not in acute distress . -HEENT: Neck is supple. No lymphadenopathy. No thyromegaly. Normal thyroid size. Eyes: No ptosis , no icterus, no photophobia. ENT: No auditory deficits. Normal oropharynx. No Thrush. - Respiratory: Chest clear to auscultations bilaterally. No wheezing. No rhonchi. - Cardiovascular: Regular rate and rhythm. S1 / S2 , no S3 , no S4. - Gastrointestinal: Abdomen soft no tenderness. Bowel sounds positive in all four quadrants. No organomegaly. - Genitourinary: Deferred. - Neurologic: Cranial nerve II to XII intact. No focal neurological deficits. - Psychatric: Alert & oriented x 3. Matching mood & appropriate affect. Judgment and insight intact. - Lymphatic: No Lymphadenopathy. - Musculoskeletal: Cervical spine: Muscle bulk/ tone/ strength in the bilateral upper extremities normal. Facet loading test cervical area positive. Lumbar spine: Motor bulk/ tone/ strength lower extremities , thigh and legs : Age Appropriate Deep tendon reflexes : Normal Knee Jerk. Normal Ankle Jerk . 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 Patient is considering use of a portable massage device for continued aches and pains of the lumbar spine. He may return to our clinic on an as-needed basis. All patient questions answered MAPS reviewed and it was appropriate. I have spent 31 minutes on patient care today. Dr Feliz was available by phone for the evaluation of this patient. The time was used to review the medical records including relevant urine studies and Prescription history (MAPs), review of the available imaging, evaluation and examination of the patient, coordination of care with the medical staff and if applicable referring physicians, as well as creation of the medical record Objective - Vital Signs Vital signs: Vital Signs Temp 98.7 F 02/14/22 14:00 Pulse 88 02/14/22 14:00 Resp 18 02/14/22 14:00 BP 117/73 02/14/22 14:00 Pulse Ox PQRS Measure Charge Sheet Mode of Arrival: Ambulatory - Pain Location Lower Medial Back Non-Pharmacological Interventions: Inactivity, Sitting Pharmacological Interventions: Block, Epidural PQRS Narrative: Blood Pressure 117/73 Pain Intensity [Lower Medial 2 Back] Scale Used Numeric (1 - 10) Hx Alcohol Use (MH) Yes: rare Home Medications: Ambulatory Orders Cholecalciferol [Vitamin D3 (25 Mcg = 1000 Iu)] 50 mcg PO DAILY 06/12/21 Clopidogrel [Plavix] 75 mg PO HS 06/12/21 Cyanocobalamin (Vitamin B-12) [Vitamin B-12] 1,000 mcg PO DAILY 06/12/21 Finasteride [Proscar] 5 mg PO HS 06/12/21 Tamsulosin HCl [Flomax] 0.8 mg PO HS 06/12/21 hydroCHLOROthiazide 25 mg PO DAILY 06/12/21 lisinopriL [Prinivil] 20 mg PO DAILY 06/12/21 Famotidine 20 mg PO DAILY 01/31/22
== END ==
LOC: PNWHC3 13:21
PROVIDERS: ATTEND Specialist
DX: M51.36 Other intervertebral disc degeneration, lumbar region (principal); M47.816 Spondylosis without myelopathy or radiculopathy, lumbar region; G89.29 Other chronic pain; Z88.5 Allergy status to narcotic agent; Z88.8 Allergy status to other drugs, medicaments and biological substances
CPT/HCPCS: 99211

== ENCOUNTER → 2023-04-23 | Outpatient (CLI) | payer MEDICARE, OTHER ==
--- NOTE | 2023-05-07 12:47 | US ---
EXAMINATION TYPE: US arterial LE multi level DATE OF EXAM: 04/23/2023 1:10 PM CLINICAL INDICATION: Male, 88 years old with history of M79.661 PAIN IN RIGHT LOWER LEG M79.662 PAIN IN LEFT LOWER L; pain in legs when walking. History of: Smoker: previous Hypertension: yes Diabetic: no Hyperlipidemia: no TIA/CVA: yes Previous Vascular Surgery: yes CAD: yes MD: yes Vascular Ulcers: no Claudication: no Gangrene: no Doppler Waveforms: Right: Multiphasic, monophasic and biphasic Left: Multiphasic, biphasic and monophasic Ankle-Brachial Indices: Right: 0.69 Left: 0.76 Toe Brachial Indices: Right: 0.34 Left: 0.45 IMPRESSION: 1. Abnormal RENAN and TBI indices suggestive of moderate to severe diffuse atherosclerotic disease cons ider follow-up arteriogram.
== END | disposition home or self-care (01) ==
LOC: RADUSWWP 12:16
PROVIDERS: ATTEND Family Medicine
DX: M79.661 Pain in right lower leg (principal); M79.662 Pain in left lower leg
CPT/HCPCS: 93923

== ENCOUNTER 2023-12-17 10:12 | Observation (INO) | payer MEDICARE, OTHER ==
--- NOTE | 2023-12-17 11:02 | ED ---
General Adult HPI - General Chief complaint: Fall Stated complaint: fell L foot and knee injury Time Seen by Provider: 12/17/23 10:34 Source: patient, family, EMS Mode of arrival: EMS Limitations: no limitations - History of Present Illness Initial comments: 88-year-old male presents to the emergency department for evaluation of left lower extremity pain. Patient reports that about 1 week ago he kneeled down on his left knee to tighten something on the stove and noticed some pain to his left knee. Following this, he notes that 2 days later he noticed worsening pain to his left leg. Again, 2 days ago patient lost his balance and took a fall from standing. He does report hitting his head on his dresser when he fell. He is on Coumadin for A-fib. Patient is unable to state if this made his leg pain worse. He does report that his slipper got stuck causing him to bend his foot when he fell. Patient is reporting significant pain to the left foot. He also reports redness to the left foot that has been there for around 4 days. Patient is unable to ambulate because of the discomfort. - Related Data Home Medications Medication Instructions Recorded Confirmed Finasteride [Proscar] 5 mg PO DAILY 06/12/21 12/17/23 Tamsulosin HCl [Flomax] 0.8 mg PO DAILY 06/12/21 12/17/23 hydroCHLOROthiazide 25 mg PO DAILY 06/12/21 12/17/23 Famotidine 20 mg PO DAILY 01/31/22 12/17/23 Bumetanide [BUMEX] 0.5 mg PO DAILY 12/17/23 12/17/23 Celecoxib [CeleBREX] 100 mg PO BID 12/17/23 12/17/23 Cholecalciferol (Vitamin D3) 125 mcg PO DAILY 12/17/23 12/17/23 [Vitamin D3 (125 MCG = 5,000 IU)] Diclofenac Sodium Gel [Voltaren 1% 2 gm TOPICAL QID 12/17/23 12/17/23 Gel] Fluticasone Nasal [place] [Flonase 1 spr EA NOSTRIL DAILY 12/17/23 12/17/23 Nasal [place]] Levothyroxine Sodium [Synthroid] 50 mcg PO DAILY 12/17/23 12/17/23 Losartan [Cozaar] 50 mg PO DAILY 12/17/23 12/17/23 Simvastatin [Zocor] 40 mg PO HS 12/17/23 12/17/23 Warfarin [Coumadin] 4 mg PO DAILY 12/17/23 12/17/23 traMADol HCL 50 mg PO BID 12/17/23 12/17/23 Allergies Allergy/AdvReac Type Severity Reaction Status Date / Time morphine Allergy Unknown swelling, Verified 12/17/23 12:15 rash steroid Allergy Unknown stomach Uncoded 12/17/23 12:15 pain Review of Systems ROS Statement: Those systems with pertinent positive or pertinent negative responses have been documented in the HPI. ROS Other: All systems not noted in ROS Statement are negative. Past Medical History Past Medical History: Coronary Artery Disease (CAD), GERD/Reflux, Hyperlipidemia, Hypertension, Myocardial Infarction ([place]), Prostate Disorder, Thyroid Disorder Additional Past Medical History / Comment(s): [place] X2 (1994), BPH, HYPOTHYROID. Last Myocardial Infarction Date:: 1994 History of Any Multi-Drug Resistant Organisms: None Reported Past Surgical History: Heart Catheterization With Stent Additional Past Surgical History / Comment(s): INJECTIONS FOR BACK PAIN. Past Anesthesia/Blood Transfusion Reactions: No Reported Reaction Additional Past Anesthesia/Blood Transfusion Reaction / Comment(s): CLAUSTROPHOBIC. Date of Last Stent Placement:: 1994 Past Psychological History: No Psychological Hx Reported Smoking Status: Former smoker - Past Family History Mother Family Medical History: Cancer Additional Family Medical History / Comment(s): STOMACH CANCER. General Exam Limitations: no limitations General appearance: alert, in no apparent distress Head exam: Present: atraumatic, normocephalic, normal inspection Eye exam: Present: normal appearance, PERRL, EOMI. Absent: scleral icterus, conjunctival injection, periorbital swelling ENT exam: Present: normal exam, mucous membranes moist Neck exam: Present: normal inspection, full ROM. Absent: tenderness, meningismus, lymphadenopathy Respiratory exam: Present: normal lung sounds bilaterally. Absent: respiratory distress, wheezes, rales, rhonchi, stridor Cardiovascular Exam: Present: regular rate, normal rhythm, normal heart sounds. Absent: systolic murmur, diastolic murmur, rubs, gallop, clicks Extremities exam: Present: tenderness, normal capillary refill, pedal edema (Left), other (DP and PT pulses 2+, erythema surrounding the second digit PIP, fifth metatarsal, tenderness to palpation in these regions). Absent: normal inspection, full ROM Back exam: Present: normal inspection Neurological exam: Present: alert, oriented X3, CN II-XII intact Psychiatric exam: Present: normal affect, normal mood Skin exam: Present: warm, dry, intact, erythema (erythema surrounding the second digit PIP, fifth metatarsal). Absent: rash Course Vital Signs 12/17/23 12/17/23 12/17/23 10:16 12:00 16:58 Temperature 99.2 F 98.8 F Pulse Rate 63 68 63 Respiratory 16 16 16 Rate Blood Pressure 125/86 152/76 157/97 O2 Sat by Pulse 93 L 98 99 Oximetry 12/17/23 18:25 Temperature 98.7 F Pulse Rate Respiratory Rate Blood Pressure O2 Sat by Pulse Oximetry Medical Decision Making - Medical Decision Making Was pt. sent in by a medical professional or institution (, PA, CONTROL SYSTEMS DESIGNER, urgent care, hospital, or usp...) When possible be specific @ -No Did you speak to anyone other than the patient for history (EMS, parent, family, police, friend...)? What history was obtained from this source @ -No Did you review nursing and triage notes (agree or disagree)? Why? @ -I reviewed and agree with nursing and triage notes Were old charts reviewed (outside hosp., previous admission, EMS record, old EKG, old radiological studies, urgent care reports/EKG's, usp records)? Report findings @ -No old charts were reviewed Differential Diagnosis (chest pain, altered mental status, abdominal pain women, abdominal pain men, vaginal bleeding, weakness, fever, dyspnea, syncope, headache, dizziness, GI bleed, back pain, seizure, CVA, palpatations, mental health, musculoskeletal)? @ -Differential Musculoskeletal Muscular strain, contusion, ligament sprain, fracture, arthritis, septic arthritis, bursitis, cellulitis, muscle spasm, nerve compression, DVT, arterial occlusion, herpes zoster, electrolyte abnormality, tumor.... This is not meant to be in all inclusive list EKG interpreted by me (3pts min.). @ -None X-rays interpreted by me (1pt min.). @ -X-ray of the left foot shows remote fracture to the second metatarsal, severe osteoarthritis throughout X-ray of the left tib-fib shows mild left knee and ankle osteoarthritis CT interpreted by me (1pt min.). @ -CT brain and C-spine shows no acute intracranial hemorrhage, no acute C- spine fracture or traumatic malalignment U/S interpreted by me (1pt. min.). @ -None done What testing was considered but not performed or refused? (CT, X-rays, U/S, labs)? Why? @ -None What meds were considered but not given or refused? Why? @ -None Did you discuss the management of the patient with other professionals (professionals i.e. , PA, CONTROL SYSTEMS DESIGNER, lab, RT, psych nurse, administrator social welfare, pick pulling machine tender, teacher, facilities officer, top case assembler)? Give summary @ -Case discussed with Dr. Triana with [facility] who is accepting of the admission Was smoking cessation discussed for >3mins.? @ -No Was critical care preformed (if so, how long)? @ -No Were there social determinants of health that impacted care today? How? (Homelessness, low income, unemployed, alcoholism, drug addiction, transportation, low edu. Level, literacy, decrease access to med. care, usp, rehab)? @ -No Was there de-escalation of care discussed even if they declined (Discuss DNR or withdrawal of care, Hospice)? DNR status @ -No What co-morbidities impacted this encounter? (DM, HTN, Smoking, COPD, CAD, Cancer, CVA, ARF, Chemo, Hep., AIDS, mental health diagnosis, sleep apnea, morbid obesity)? @ -None Was patient admitted / discharged? Hospital course, mention meds given and route, prescriptions, significant lab abnormalities, going to OR and other pertinent info. @ -Admitted. Patient presented to the emergency department for evaluation of left lower extremity pain. On examination, patient has multiple areas of erythema and pain to palpation on the left foot along with the left knee. X- rays obtained which show no acute fracture. Laboratory studies obtained.CBC shows WBC 10.2, hemoglobin 14.8; ESR 61; CMP shows sodium 136, calcium 4.9, creatinine 1.21; CRP 17.9. Discussed with patient that this is possibly an inflammatory polyarthritis. Patient is unable to ambulate because of this. Patient will be started on anti-inflammatory medication every 8 hours and orthopedics will be consulted. The case was discussed with Dr. Triana who is accepting of the admission. Stable at time of admission. Case discussed with Dr. Garcia who also evaluated the patient and agrees with assessment and plan Undiagnosed new problem with uncertain prognosis? @ -No Drug Therapy requiring intensive monitoring for toxicity (Heparin, Nitro, Ins ulin, Cardizem)? @ -No Were any procedures done? @ -No Diagnosis/symptom? @ -inflammatory arthritis Acute, or Chronic, or Acute on Chronic? @ -Acute Uncomplicated (without systemic symptoms) or Complicated (systemic symptoms)? @ -uncomplicated Side effects of treatment? @ -No Exacerbation, Progression, or Severe Exacerbation? @ -No Poses a threat to life or bodily function? How? (Chest pain, [place], [place], pneumonia, PE, COPD, DKA, ARF, appy, cholecystitis, CVA, Diverticulitis, Homicidal, Suici cristal, threat to staff... and all critical care pts) @ -No - Lab Data Result diagrams: 12/17/23 13:10 12/17/23 13:10 Lab Results 12/17/23 12/17/23 12/17/23 Range/Units 13:10 13:10 13:10 WBC 10.2 (3.8-10.6) k/uL RBC 4.76 (4.30-5.90) m/uL Hgb 14.8 (13.0-17.5) gm/dL Hct 42.4 (39.0-53.0) % MCV 89.0 (80.0-100.0) fL MCH 31.0 (25.0-35.0) pg MCHC 34.9 (31.0-37.0) g/dL RDW 12.4 (11.5-15.5) % Plt Count 310 (150-450) k/uL MPV 7.8 Neutrophils % 71 % Lymphocytes % 20 % Monocytes % 5 % Eosinophils % 1 % Basophils % 0 % Neutrophils # 7.3 (1.3-7.7) k/uL Lymphocytes # 2.1 (1.0-4.8) k/uL Monocytes # 0.5 (0-1.0) k/uL Eosinophils # 0.1 (0-0.7) k/uL Basophils # 0.0 (0-0.2) k/uL ESR 61 H (0-20) mm/Hr Sodium 136 L (137-145) mmol/L Potassium 4.9 (3.5-5.1) mmol/L Chloride 104 (98-107) mmol/L Carbon Dioxide 22 (22-30) mmol/L Anion Gap 10 mmol/L BUN 23 H (9-20) mg/dL Creatinine 1.21 (0.66-1.25) mg/dL Est GFR (CKD-EPI)AfAm 62 (>60 ml/min/1.73 sqM) Est GFR (CKD-EPI)NonAf 54 (>60 ml/min/1.73 sqM) Glucose 114 H (74-99) mg/dL Uric Acid 9.6 H (3.5-8.5) mg/dL Calcium 9.3 (8.4-10.2) mg/dL Total Bilirubin 2.3 H (0.2-1.3) mg/dL AST 41 (17-59) U/L ALT 24 (4-49) U/L Alkaline Phosphatase 83 (38-126) U/L C-Reactive Protein 17.9 H (<1.0) mg/dL Total Protein 7.7 (6.3-8.2) g/dL Albumin 4.1 (3.5-5.0) g/dL Disposition Clinical Impression: Polyarthralgia, Inflammatory arthritis Disposition: ADMITTED IP TO THIS HOSP Condition: Stable Is patient prescribed a controlled substance at d/c from ED?: No
--- NOTE | 2023-12-17 11:50 | XR ---
EXAMINATION TYPE: XR foot complete LT DATE OF EXAM: 12/17/2023 11:29 AM CLINICAL INDICATION:Male, 88 years old with history of fall; [facility] COMPARISON: None TECHNIQUE: XR foot complete LT examined in the AP, oblique, and lateral projections. FINDINGS: No evidence of any acute osseous pathology. No evidence of soft tissue swelling. Joints are preserve d. Degeneration changes worse at the second digit metatarsophalangeal joint and the first digit secon maribel to and tarsal metatarsal joints. Remote fracture of the second metatarsal with complete osseous fusion. There is degeneration changes of the tibiotalar joint and calcaneal plantar spurring. IMPRESSION: 1. No evidence of acute fracture. 2. Severe degeneration changes throughout the joints of the foot with remote second metatarsal fract ure..
--- NOTE | 2023-12-17 11:51 | XR ---
EXAMINATION TYPE: XR tibia fibula LT DATE OF EXAM: 12/17/2023 11:29 AM CLINICAL INDICATION:Male, 88 years old with history of fall; COMPARISON: None TECHNIQUE: XR tibia fibula LT; tibia/fibula was examined in AP and lateral projections. FINDINGS: No evidence of any acute osseous pathology, joint dislocation, or soft tissue swelling is n oted. Severe atherosclerosis of the arterial vasculature. Osteophyte formation and tibial plateau and patella. IMPRESSION: 1. No evidence of acute fracture. 2. Mild left knee and left ankle osteoarthrosis.
--- NOTE | 2023-12-17 11:57 | CT ---
EXAMINATION TYPE: CT brain acosta wo con DATE OF EXAM: 12/17/2023 COMPARISON: None HISTORY: Fall. CT DLP: 1382 mGycm, Automated exposure control for dose reduction was used. CONTRAST: Patient injected with 0 mL of Isovue 300. CT of the brain is performed utilizing 3 mm thick sections through the posterior fossa and 3 mm thick sections through the remaining calvarium. Study is performed within 24 hours of arrival to the hospital. No abnormal hyperdensity is present to suggest an acute intracranial hemorrhage. No mass lesion is evident. No acute infarcts are evident. Ventricular white matter hypodensity is present, likely on the basis of chronic white matter ischemic changes. There may be an old subcortical infarct in the right pariet al lobe. No adjacent mass effect on the ventricles or sulci is evident. Ventricles and sulci are prominent for the patient age. Paranasal sinuses and mastoid air cells within the [id number] are clear. IMPRESSIONS: 1. Chronic appearing periventricular white matter ischemic type changes. 2. Suspected old subcortical ischemic change right parietal lobe. CT cervical spine. COMPARISON: 10/07/2020 CT of the cervical spine is performed in the axial plane at 2 mm thick sections. Reconstructed image s in the coronal, and sagittal plane are reviewed on the computer. No acute fractures are evident. Vertebral body alignment is normal. There is diffuse loss of disc height throughout the cervical spine greatest at C4-5 C5-6 and C6-7 lev els. Intervertebral body spurring is present C4-C7. Prevertebral space appears normal. Vertebral body heights are preserved. No spinal canal stenosis is evident. Right foraminal stenosis is present at C3-4 level. Bilateral foraminal stenosis is present at C4-5 C5 -6 and C6-7. IMPRESSION: 1. No acute osseous abnormality cervical spine. 2. Diffuse degenerative disc changes and foraminal stenosis discussed above.
[2023-12-17] MEDS ORDERED: KETOROLAC 15 MG/ML 1 ML VIAL IVP STA (12:38)
[2023-12-17] MEDS ORDERED: LIDOCAINE 4% PATCH TOPICAL ONE (12:39)
[2023-12-17 13:25] LABS: Basophils % (A) 0 %; Eosinophils # (A) 0.1 k/uL (0-0.7); Eosinophils % (A) 1 %; HCT 42.4 % (39.0-53.0); HGB 14.8 gm/dL (13.0-17.5); Lymphocytes # (A) 2.1 k/uL (1.0-4.8); Lymphocytes % (A) 20 %; MCHC 34.9 g/dL (31.0-37.0); Mean Platelet Volume 7.8; Monocytes # (A) 0.5 k/uL (0-1.0); Monocytes % (A) 5 %; Neutrophils # (A) 7.3 k/uL (1.3-7.7); Neutrophils % (A) 71 %; Platelet Count 310 k/uL (150-450); RBC 4.76 m/uL (4.30-5.90); RDW 12.4 % (11.5-15.5); WBC 10.2 k/uL (3.8-10.6)
[2023-12-17 14:11] LABS: ALT 24 U/L (4-49); AST 41 U/L (17-59); African American GFR (CKD) 62 (>60 ml/min/1.73 sqM); Albumin 4.1 g/dL (3.5-5.0); Alkaline Phosphatase 83 U/L (38-126); Anion Gap 10 mmol/L; Blood Urea Nitrogen 23 mg/dL (9-20); Calcium 9.3 mg/dL (8.4-10.2); Carbon Dioxide 22 mmol/L (22-30); Chloride 104 mmol/L (98-107); Glucose 114 mg/dL (74-99); Non-African American GFR(CKD) 54 (>60 ml/min/1.73 sqM); Sodium 136 mmol/L (137-145); Total Bilirubin 2.3 mg/dL (0.2-1.3); Total Protein 7.7 g/dL (6.3-8.2)
[2023-12-17 14:27] LABS: C Reactive Protein 17.9 mg/dL (<1.0); Potassium 4.9 mmol/L (3.5-5.1)
[2023-12-17] MEDS ORDERED: ACETAMINOPHEN TAB 325 MG TAB PO PRN (15:08)
[2023-12-17] MEDS ORDERED: NALOXONE 0.4 MG/ML 1 ML VIAL IV PRN (15:08)
[2023-12-17] MEDS ORDERED: HYDROcodone/APAP 5-325MG 1 EACH TAB PO PRN (15:08)
[2023-12-17] MEDS ORDERED: IBUPROFEN 600 MG TAB PO SCH (16:00)
[2023-12-17 16:54] LABS: INR 4.6 (<1.2); Prothrombin Time 45.2 sec (10.0-12.5)
[2023-12-17] MEDS ORDERED: IPRATROPIUM-ALBUTEROL 3 ML NEB INHALATION PRN (16:55)
--- NOTE | 2023-12-17 17:05 | P.HPIM ---
History of Present Illness H&P Date: 12/17/23 History of Presenting Illness: Patient is a very pleasant 88-year-old male with a past medical history of CAD with stents, Atrial fibrillation on anticoagulation with Coumadin, hypertension, hyperlipidemia, hypothyroidism and COPD. Patient reports that on December 02 he knelt down on the floor to fix his heater and while kneeling on the ground he began experiencing significant pain in his left knee. Patient reports he stood up but continued to have significant pain in his left knee and difficulties walking. Patient states since this time he has continued to have worsening pain which radiated down into his left foot. Patient reports due to the significant pain he has had a hard time keeping his balance and has experienced multiple falls and overall unsteady balance. Patient reports about 5 days ago or so he developed significant redness in his left foot and inability to place any weight on foot due to significant pain. He denies any numbness or tingling. Denies any open wounds or injuries obtained to left foot or knee. He denies any fevers, chills, diaphoresis, headache, lightheadedness, dizziness, chest pain, palpitations, shortness of breath, or experiencing any numbness or tingling in his extremities. Patient underwent full evaluation in the emergency department. Vital signs upon arrival blood pressure 125/86, heart rate 63, respiratory rate 16, temp 99.2 F, SpO2 of 93% on room air. Labs completed and reviewed. CBC unremarkable with WBC count of 10.2. BMP showing mild prerenal azotemia with BUN of 23 otherwise normal findings. Liver profile showing hyperbilirubinemia with bilirubin of 2.3 otherwise normal findings. CRP elevated at 17.9. CT head and cervical spine completed negative for acute process showing diffuse degenerative disc changes and foraminal stenosis of cervical spine and chronic appearing periventricular white matter ischemic changes and suspected old subcortical ischemic changes and right parietal lobe. x-ray left foot completed showing no evidence of acute fractures revealing severe degenerative changes throughout the joints of the left foot with a remote second metatarsal fracture with complete osseous fusion. 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 Patient admitted under our services with consultation to orthopedic surgery. Review of systems: Pertinent positives and negatives as discussed in HPI, a complete review of systems was performed and all other systems are negative. Physical exam: Vital signs reviewed and stable. General: Nontoxic, no distress and appears stated age. Derm: Skin warm and dry, normal coloration for ethnicity. Head: Atraumatic, normocephalic and symmetric. Eyes: EOMs intact, no lid lag, and anicteric sclera Mouth: no lip lesions, mucus membranes moist Cardiovascular: regular rate and rhythm with normal S1S2, systolic murmur, positive posterior tibial pulses bilaterally, and cap refill < 2 seconds. Lungs: Respirations even, regular, and unlabored on room air. Lungs slightly diminished with soft expiratory wheezes. Abdominal: soft, nontender to palpation, no guarding, no appreciable organomegaly Ext: ROM intact. No gross muscle atrophy, no edema, no contractures. Pt has palpable lump on left foot near medial tarsometatarsal joint along with area of swelling and redness to left foot MCP joint of left foot second digit. No open wounds or drainage. Neuro: Speech clear, face symmetrical and CN II-XII grossly intact with no noted focal neuro deficits Psych: Alert and oriented to person, place, time, and situation. Appropriate and pleasant affect. Assessment and Plan of Care: Left foot pain, redness and swelling Left knee pain Recurrent falls, difficulty with balance and ambulation secondary to above -Vasculitis appearing lesions to left foot with palpable lump on left foot near medial tarsometatarsal joint and to left foot metatarsophalangeal joint of second toe. -Patient started on prednisone 40 mg daily. -Orthopedic surgery consulted for evaluation -Will follow inflammatory markers with ESR and CRP and monitor for any signs/symptoms of infection. -Order placed for uric acid level to rule out gouty arthritis -Pt with significant pain surrounding entire left anterior patella without any redness, swelling, or injury noted. Possibly secondary to patellofemoral pain syndrome -Pt also with pain to left knee with internal rotation, rule out lateral meniscus tear/sprain. -Symptomatic care and pain management. -Consult placed to PT/OT -Fall precautions History of CAD with stents Hypertension Paroxysmal atrial fibrillation Hyperlipidemia Continue cardiac medication regimen with atorvastatin 20 mg nightly, bumetanide 0.5 mg daily, hydrochlorothiazide 25 mg daily, losartan 50 mg daily, and Coumadin pharmacy to dose to obtain goal therapeutic INR 2-3. Hypothyroidism Continue daily medication regimen with levothyroxine 50 mcg daily. COPD not in acute exacerbation DuoNebs as needed for wheezing/shortness of breath. Data and imaging reviewed: -As stated above in HPI The patient is admitted with an anticipated less than 2 midnight stay for evaluation of left lower extremity pain and difficulties with ambulation and balance CODE STATUS: Full code DVT prophylaxis: Coumadin Anticipated discharge date: 24 to [address]: Clinical course to determine, if remains unable to ambulate may need ECF Patient was seen independently by Nurse Practitioner. This document was prepared using [employer] dictation software. Please allow for errors in engineering systems analyst while rare they do occur. Pardeep Pretty NP rendered care for this patient independently, reviewed the findings and plan as documented in the note above. I did not physically speak with or examine the patient on this date. Past Medical History Past Medical History: Coronary Artery Disease (CAD), GERD/Reflux, Hyperlipidemia, Hypertension, Myocardial Infarction ([place]), Prostate Disorder, Thyroid Disorder Additional Past Medical History / Comment(s): [place] X2 (1994), BPH, HYPOTHYROID. Last Myocardial Infarction Date:: 1994 History of Any Multi-Drug Resistant Organisms: None Reported Past Surgical History: Heart Catheterization With Stent Additional Past Surgical History / Comment(s): INJECTIONS FOR BACK PAIN. Past Anesthesia/Blood Transfusion Reactions: No Reported Reaction Additional Past Anesthesia/Blood Transfusion Reaction / Comment(s): CLAUSTROPHOBIC. Date of Last Stent Placement:: 1994 Past Psychological History: No Psychological Hx Reported Smoking Status: Former smoker - Past Family History Mother Family Medical History: Cancer Additional Family Medical History / Comment(s): STOMACH CANCER. Medications and Allergies Home Medications Medication Instructions Recorded Confirmed Type Finasteride [Proscar] 5 mg PO DAILY 06/12/21 12/17/23 History Tamsulosin HCl [Flomax] 0.8 mg PO DAILY 06/12/21 12/17/23 History hydroCHLOROthiazide 25 mg PO DAILY 06/12/21 12/17/23 History Famotidine 20 mg PO DAILY 01/31/22 12/17/23 History Bumetanide [BUMEX] 0.5 mg PO DAILY 12/17/23 12/17/23 History Celecoxib [CeleBREX] 100 mg PO BID 12/17/23 12/17/23 History Cholecalciferol (Vitamin D3) 125 mcg PO DAILY 12/17/23 12/17/23 History [Vitamin D3 (125 MCG = 5,000 IU)] Diclofenac Sodium Gel [Voltaren 1% 2 gm TOPICAL QID 12/17/23 12/17/23 History Gel] Fluticasone Nasal [place] [Flonase 1 spr EA NOSTRIL DAILY 12/17/23 12/17/23 History Nasal [place]] Levothyroxine Sodium [Synthroid] 50 mcg PO DAILY 12/17/23 12/17/23 History Losartan [Cozaar] 50 mg PO DAILY 12/17/23 12/17/23 History Simvastatin [Zocor] 40 mg PO HS 12/17/23 12/17/23 History Warfarin [Coumadin] 4 mg PO DAILY 12/17/23 12/17/23 History traMADol HCL 50 mg PO BID 12/17/23 12/17/23 History Allergies Allergy/AdvReac Type Severity Reaction Status Date / Time morphine Allergy Unknown swelling, Verified 12/17/23 12:15 rash steroid Allergy Unknown stomach Uncoded 12/17/23 12:15 pain Physical Exam Osteopathic Statement: *. No significant issues noted on an osteopathic structural exam other than those noted in the History and Physical/Consult. Vitals: Vital Signs Temp Pulse Resp BP Pulse Ox 12/17/23 12:00 98.8 F 68 16 152/76 98 12/17/23 10:16 99.2 F 63 16 125/86 93 L Intake and Output 12/17/23 12/17/23 12/17/23 06:59 14:59 22:59 Other: Weight 86.183 kg Results CBC & Chem 7: 12/17/23 13:10 12/17/23 13:10 Labs: Abnormal Lab Results - Last 24 Hours (Table) 12/17/23 Range/Units 13:10 Sodium 136 L (137-145) mmol/L BUN 23 H (9-20) mg/dL Glucose 114 H (74-99) mg/dL Total Bilirubin 2.3 H (0.2-1.3) mg/dL C-Reactive Protein 17.9 H (<1.0) mg/dL
[2023-12-17 17:06] LABS: Erythrocyte Sedimentation Rate 61 mm/Hr (0-20)
[2023-12-17] MEDS: predniSONE 20 MG TAB PO SCH (17:12)
[2023-12-17] MEDS ORDERED: WARFARIN 0.5 MG TAB PO ONE (19:00)
[2023-12-17] MEDS: IPRATROPIUM-ALBUTEROL 3 ML NEB INHALATION SCH (20:00)
[2023-12-17] MEDS: ATORVASTATIN 20 MG TAB PO SCH (20:41)
[2023-12-17] MEDS: traMADol 50 MG TAB PO SCH (20:41)
[2023-12-18] MEDS: LEVOTHYROXINE 50 MCG TAB PO SCH (06:30)
[2023-12-18 07:06] LABS: INR 4.5 (<1.2); Prothrombin Time 44.1 sec (10.0-12.5)
[2023-12-18] MEDS: IPRATROPIUM-ALBUTEROL 3 ML NEB INHALATION SCH ×3 (07:53→18:11)
[2023-12-18 11:06] LABS: HCT 41.9 % (39.6-50.0); MCHC 33.4 g/dL (32.0-37.0); MCV 89.9 FL (80.0-97.0); Mean Platelet Volume 11.3 FL (9.5-12.2); NRBC Per 100 WBC 0 X 10*3/uL (0.00-0.01); Platelet Count 280 X 10*3/uL (140-440); RBC 4.66 X 10*6/uL (4.40-5.60); RDW 12.7 % (11.5-14.5); WBC 8.39 X 10*3/uL (4.50-10.00)
[2023-12-18] MEDS: predniSONE 20 MG TAB PO SCH (11:30)
[2023-12-18] MEDS: BUMETANIDE 0.5 MG TABLET PO SCH (11:30)
[2023-12-18] MEDS: TAMSULOSIN 0.4 MG CAP.ER.24H PO SCH (11:30)
[2023-12-18] MEDS: FINASTERIDE 5 MG TAB PO SCH (11:30)
[2023-12-18] MEDS: LOSARTAN 50 MG TAB PO SCH (11:31)
[2023-12-18] MEDS: traMADol 50 MG TAB PO SCH ×2 (11:31→20:18)
[2023-12-18] MEDS: FAMOTIDINE 20 MG TAB PO SCH (11:31)
[2023-12-18] MEDS: hydroCHLOROthiazide 25 MG TAB PO SCH (11:31)
[2023-12-18 11:34] LABS: Magnesium 2.4 mg/dL (1.5-2.4)
[2023-12-18 11:40] LABS: ALT 20 U/L (10-49); AST 29 U/L (14-35); Albumin 3.8 g/dL (3.8-4.9); Albumin/Globulin Ratio 1.31 Ratio (1.60-3.17); Alkaline Phosphatase 79 U/L (41-126); BUN/Creat Ratio 22.92 Ratio (12.00-20.00); Blood Urea Nitrogen 29.8 mg/dL (9.0-27.0); Calcium 8.9 mg/dL (8.7-10.3); Carbon Dioxide 21.3 mmol/L (21.6-31.8); Chloride 100 mmol/L (96-109); Globulin 2.9 g/dL (1.6-3.3); Glucose 131 mg/dL (70-110); Potassium 4.5 mmol/L (3.5-5.5); Sodium 137 mmol/L (135-145); Total Protein 6.7 g/dL (6.2-8.2)
[2023-12-18] MEDS: FLUTICASONE 50MCG/SPRAY NASAL 16GM EA NOSTRIL SCH (12:01)
--- NOTE | 2023-12-18 13:57 | P.PN ---
Subjective Progress Note Date: 12/18/23 Hospital Course: Patient is a very pleasant 88-year-old male with a past medical history of CAD with stents, Atrial fibrillation on anticoagulation with Coumadin, hypertension, hyperlipidemia, hypothyroidism and COPD. Patient reports that on December 02 he knelt down on the floor to fix his heater and while kneeling on the ground he began experiencing significant pain in his left knee. Patient reports he stood up but continued to have significant pain in his left knee and difficulties walking. Patient states since this time he has continued to have worsening pain which radiated down into his left foot. Patient reports due to the significant pain he has had a hard time keeping his balance and has experienced multiple falls and overall unsteady balance. Patient reports about 5 days ago or so he developed significant redness in his left foot and inability to place any weight on foot due to significant pain. He denies any numbness or tingling. Denies any open wounds or injuries obtained to left foot or knee. He denies any fevers, chills, diaphoresis, headache, lightheadedness, dizziness, chest pain, palpitations, shortness of breath, or experiencing any numbness or tingling in his extremities. Patient underwent full evaluation in the emergency department. Vital signs upon arrival blood pressure 125/86, heart rate 63, respiratory rate 16, temp 99.2 F, SpO2 of 93% on room air. Labs completed and reviewed. CBC unremarkable with WBC count of 10.2. BMP showing mild prerenal azotemia with BUN of 23 otherwise normal findings. Liver profile showing hyperbilirubinemia with bilirubin of 2.3 otherwise normal findings. CRP elevated at 17.9. CT head and cervical spine completed negative for acute process showing diffuse degenerative disc changes and foraminal stenosis of cervical spine and chronic appearing periventricular white matter ischemic changes and suspected old subcortical ischemic changes and right parietal lobe. x-ray left foot completed showing no evidence of acute fractures revealing severe degenerative changes throughout the joints of the left foot with a remote second metatarsal fracture with complete osseous fusion. 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 Patient admitted under our services with consultation to orthopedic surgery. Physical exam: Patient was started on prednisone 40 mg daily yesterday and today showing significant improvement this morning not only with redness/vasculitis appearing lesion of left foot, but also able to tolerate mild touch and movement in left foot and knee which he was not able to do yesterday. Vital signs reviewed and stable. General: Nontoxic, no distress and appears stated age. Derm: Skin warm and dry, normal coloration for ethnicity. Head: Atraumatic, normocephalic and symmetric. Eyes: EOMs intact, no lid lag, and anicteric sclera Mouth: no lip lesions, mucus membranes moist Cardiovascular: regular rate and rhythm with normal S1S2, systolic murmur, positive posterior tibial pulses bilaterally, and cap refill < 2 seconds. Lungs: Respirations even, regular, and unlabored on room air. Lungs slightly dim inished with soft expiratory wheezes. Abdominal: soft, nontender to palpation, no guarding, no appreciable organomegaly Ext: ROM intact. No gross muscle atrophy, no edema, no contractures. Pt has palpable lump on left foot near medial tarsometatarsal joint along with area of swelling and redness/vasculitis appearing lesion to left foot MCP joint of left foot second digit. No open wounds or drainage. Neuro: Speech clear, face symmetrical and CN II-XII grossly intact with no noted focal neuro deficits Psych: Alert and oriented to person, place, time, and situation. Appropriate and pleasant affect. Assessment and Plan of Care: Left foot pain, redness and swelling Left knee pain Recurrent falls, difficulty with balance and ambulation secondary to above -Vasculitis appearing lesions to left foot with palpable lump on left foot near medial tarsometatarsal joint and to left foot metatarsophalangeal joint of second toe. -Continue prednisone 40 mg daily. -Orthopedic surgery was consulted for evaluation, appreciate recommendations -Will follow inflammatory markers with ESR and CRP and monitor for any signs/symptoms of infection. -Order placed for uric acid level to rule out gouty arthritis -Pt with significant pain surrounding entire left anterior patella without any redness, swelling, or injury noted. Possibly secondary to patellofemoral pain syndrome -Pt also with pain to left knee with internal rotation, rule out lateral meniscus tear/sprain. -Symptomatic care and pain management. -PT/OT consulted. -Fall precautions Supratherapeutic INR -INR supratherapeutic at 4.5 this morning. No signs of bleeding, we will hold off on vitamin K administration at this time. -Coumadin to be held until INR can be normalized with goal therapeutic range of 2-3 and then to be dosed by pharmacy. -Fall precautions to remain in place. High anion gap metabolic acidosis Prerenal azotemia -Patient started on gentle IV fluid hydration with 0.9% normal saline at 100 cc/h. Will monitor for resolution. History of CAD with stents Hypertension Paroxysmal atrial fibrillation Hyperlipidemia Continue cardiac medication regimen with atorvastatin 20 mg nightly, bumetanide 0.5 mg daily, hydrochlorothiazide 25 mg daily, losartan 50 mg daily, and Coumadin pharmacy to dose to obtain goal therapeutic INR 2-3. Hypothyroidism Continue daily medication regimen with levothyroxine 50 mcg daily. COPD not in acute exacerbation DuoNebs as needed for wheezing/shortness of breath. Data and imaging reviewed: Vital signs reviewed and stable. Blood pressure 146/79, heart rate 69, respiratory rate 15, temp 98.0 F, SpO2 of 99% on room air. Morning labs reviewed. CBC unremarkable with hemoglobin stable at 14.0. BMP showing mild metabolic acidosis with chloride of 100, bicarb of 21.3, and elevated anion gap of 15.70. Creatinine 29.8. CRP showing slight improvement from previous 17.9 down to 15.8 this morning. Coagulation profile showing supratherapeutic INR 4.5. CODE STATUS: Full code DVT prophylaxis: Coumadin Anticipated discharge date: Likely within the next [address]: Clinical course to determine, if remains unable to ambulate may need ECF but currently planning for discharge home Patient was seen independently by Nurse Practitioner. This document was prepared using [employer] dictation software. Please allow for errors in library services coordinator while rare they do occur. Pardeep Pretty NP rendered care for this patient independently, reviewed the findings and plan as documented in the note above. I did not physically speak with or examine the patient on this date. Objective - Vital Signs Vital signs: Vital Signs Temp 98.0 F 12/18/23 07:00 Pulse 69 12/18/23 07:00 Resp 15 12/18/23 07:00 BP 146/79 12/18/23 07:00 Pulse Ox 99 12/18/23 07:00 FiO2 Intake & Output 12/17/23 12/18/23 12/18/23 18:59 06:59 18:59 Weight 86.183 kg 86.183 kg Other: # Voids 2 - Labs CBC & Chem 7: 12/18/23 06:32 12/18/23 06:32 Labs: Abnormal Lab Results - Last 24 Hours (Table) 12/17/23 12/17/23 12/17/23 Range/Units 13:10 13:10 13:10 ESR 61 H (0-20) mm/Hr PT (10.0-12.5) sec INR (<1.2) Sodium 136 L (137-145) mmol/L BUN 23 H (9-20) mg/dL Glucose 114 H (74-99) mg/dL Uric Acid 9.6 H (3.5-8.5) mg/dL Total Bilirubin 2.3 H (0.2-1.3) mg/dL C-Reactive Protein 17.9 H (<1.0) mg/dL 12/17/23 12/18/23 Range/Units 16:42 06:32 ESR (0-20) mm/Hr PT 45.2 H 44.1 H (10.0-12.5) sec INR 4.6 H 4.5 H (<1.2) Sodium (137-145) mmol/L BUN (9-20) mg/dL Glucose (74-99) mg/dL Uric Acid (3.5-8.5) mg/dL Total Bilirubin (0.2-1.3) mg/dL C-Reactive Protein (<1.0) mg/dL
[2023-12-18] MEDS: SODIUM CHLORIDE 0.9% 1,000 ML IV SCH ×2 (14:37→22:53)
[2023-12-18 16:17] LABS: Erythrocyte Sedimentation Rate 55 mm/Hr (0-20)
[2023-12-18] MEDS ORDERED: WARFARIN 0.5 MG TAB PO ONE (18:00)
--- NOTE | 2023-12-18 18:32 | P.CNOR ---
History of Present Illness - [facility] Consult date: 12/18/23 Requesting physician: Dary Denise Consult reason: other (Left lower extremity pain difficulty with ambulation) History of present illness: Patient is a very pleasant 88-year-old male who was seen and examined at the bedside for further evaluation of his left lower extremity. He states over the past month he has been experiencing severe pain at his knee that radiates down to his foot. He states the pain has been severe in his foot. The pain has been so severe he said you were unable to even blow air on his foot as it would exacerbate his pain. He had significant pain with palpation over his left knee and left foot. He states he was unable to ambulate on his left lower extremity due to the pain. He has fallen multiple times due to his left lower extremity pain. He presented to [facility] for further evaluation. Since his admission he was recently started on Solu-Medrol IV. He states since that time his symptoms have dramatically improved. He was able to ambulate to the restroom without any significant difficulty. He has good range of motion of his left knee and left ankle without difficulty. He states for the first time in a month he has been able to ambulate on his left lower extremity without significant difficulty. I am able to palpate his left knee, calf, ankle, and foot without any pain. He has had multiple imaging modalities taken of the left foot, tibia, and fibula and knee without evidence of any acute fracture. He does have some red spots that appear vascular in nature appearing around his left ankle and foot. He states these are new discolorations for him. He does follow with Dr. Chen and vascular surgery. 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 He underwent further imaging in this regard previously. He is scheduled for further evaluation with him in December 2022. He does admit to some difficulties with his lumbar spine and follows with pain management in outpatient setting. Currently, he is very happy with his progress while on steroid medication. He has no further complaints at the bedside. He continues to be seen and examined by medicine. Patient's other medical diagnoses include hypertension, paroxysmal atrial fibrillation, hyperlipidemia, hypothyroidism, COPD, and history of CAD with stenting. Past Medical History Past Medical History: Coronary Artery Disease (CAD), GERD/Reflux, Hyperlipidemia, Hypertension, Myocardial Infarction (IN), Prostate Disorder, Thyroid Disorder Additional Past Medical History / Comment(s): IN X2 (1994), BPH, HYPOTHYROID. Last Myocardial Infarction Date:: 1994 History of Any Multi-Drug Resistant Organisms: None Reported Past Surgical History: Heart Catheterization With Stent Additional Past Surgical History / Comment(s): INJECTIONS FOR BACK PAIN. Past Anesthesia/Blood Transfusion Reactions: No Reported Reaction Additional Past Anesthesia/Blood Transfusion Reaction / Comm: CLAUSTROPHOBIC. Date of Last Stent Placement:: 1994 Past Psychological History: No Psychological Hx Reported Smoking Status: Former smoker Past Alcohol Use History: Rare Additional Past Alcohol Use History / Comment(s): QUIT SMOKING 1992, SMOKED 40 YEARS. Past Drug Use History: None Reported - Past Family History Mother Family Medical History: Cancer Additional Family Medical History / Comment(s): STOMACH CANCER. Medications and Allergies Home Medications Medication Instructions Recorded Confirmed Type Finasteride [Proscar] 5 mg PO DAILY 06/12/21 12/17/23 History Tamsulosin HCl [Flomax] 0.8 mg PO DAILY 06/12/21 12/17/23 History hydroCHLOROthiazide 25 mg PO DAILY 06/12/21 12/17/23 History Famotidine 20 mg PO DAILY 01/31/22 12/17/23 History Bumetanide [BUMEX] 0.5 mg PO DAILY 12/17/23 12/17/23 History Celecoxib [CeleBREX] 100 mg PO BID 12/17/23 12/17/23 History Cholecalciferol (Vitamin D3) 125 mcg PO DAILY 12/17/23 12/17/23 History [Vitamin D3 (125 MCG = 5,000 IU)] Diclofenac Sodium Gel [Voltaren 1% 2 gm TOPICAL QID 12/17/23 12/17/23 History Gel] Fluticasone Nasal [place] [Flonase 1 spr EA NOSTRIL DAILY 12/17/23 12/17/23 History Nasal [place]] Levothyroxine Sodium [Synthroid] 50 mcg PO DAILY 12/17/23 12/17/23 History Losartan [Cozaar] 50 mg PO DAILY 12/17/23 12/17/23 History Simvastatin [Zocor] 40 mg PO HS 12/17/23 12/17/23 History Warfarin [Coumadin] 4 mg PO DAILY 12/17/23 12/17/23 History traMADol HCL 50 mg PO BID 12/17/23 12/17/23 History Allergies Allergy/AdvReac Type Severity Reaction Status Date / Time morphine Allergy Unknown swelling, Verified 12/17/23 12:15 rash steroid Allergy Unknown stomach Uncoded 12/17/23 12:15 pain Physical Examination Physical Exam: Patient is awake, alert, and oriented 3 Vital signs stable Good chest excursion with deep inspiration and expiration Patient is able to perform good range of motion with flexion and extension of the left knee Patient is able to perform dorsiflexion and plantarflexion of the left lower extremities out difficulty Palpation of the left calf is soft nontender No significant swelling over the left knee, left calf, left ankle, or left foot I am able to palpate his entire left lower extremity over the knee, calf, ankle, and foot without any significant pain Patient is neurologically intact for the left lower extremity Evidence of some vascular appearing lesions at his left medial ankle and top of the left foot near the mid metatarsal phalangeal joints Results Pertinent studies: X-rays of the left tibia, fibula, knee, and foot taken on 12/17/2023: No evidence of acute fracture; remote fracture of the second metatarsal with complete osseous fusion; degenerative changes at the tibiotalar joint, calcaneal plantar spurring; degenerative changes worse at the second digit metatarsal phalangeal joint and the first digit secondary to and tarsometatarsal joints; mild osteoarthritis of the left knee; no evidence of fracture or dislocation at the left knee; no evidence of significant left knee swelling; severe arthrosclerosis of the arterial vasculature - Labs Labs: Abnormal Lab Results - Last 24 Hours (Table) 12/18/23 12/18/23 12/18/23 Range/Units 06:32 06:32 06:32 ESR 55 H (0-20) mm/Hr PT 44.1 H (10.0-12.5) sec INR 4.5 H (<1.2) Carbon Dioxide 21.3 L (21.6-31.8) mmol/L Anion Gap 15.70 H (4.00-12.00) mmol/L BUN 29.8 H (9.0-27.0) mg/dL Est GFR (CKD-EPI) 53 L (>=60) BUN/Creatinine Ratio 22.92 H (12.00-20.00) Ratio Glucose 131 H (70-110) mg/dL C-Reactive Protein 15.80 H (0.00-0.80) mg/dL Albumin/Globulin Ratio 1.31 L (1.60-3.17) Ratio H & H 12/17/23 12/18/23 Range/Units 13:10 06:32 Hgb 14.8 14.0 (13.0-17.5) gm/dL Hct 42.4 41.9 (39.0-53.0) % Coagulation 12/17/23 12/18/23 Range/Units 16:42 06:32 INR 4.6 H 4.5 H (<1.2) Result Diagrams: 12/18/23 06:32 12/18/23 06:32 Assessment and Plan Assessment: Assessment: Inability to ambulate on left lower extremity due to lower extremity pain and foot pain History of multiple falls due to left lower extremity leg pain Left lower extremity leg pain over the past month Vascular appearing lesions over the left foot and ankle Hypertension Paroxysmal atrial fibrillation Hyperlipidemia Hypothyroidism COPD History of coronary artery disease with stenting Arthrosclerosis is of the arterial vasculature (1) Inability to ambulate due to ankle or foot Current Visit: Yes Status: Acute Code(s): R26.2 - DIFFICULTY IN WALKING, NOT ELSEWHERE CLASSIFIED SNOMED Code(s): 105206540 (2) Left leg pain Current Visit: Yes Status: Acute Code(s): M79.605 - PAIN IN LEFT LEG SNOMED Code(s): 116983720 (3) Frequent falls Current Visit: Yes Status: Acute Code(s): R29.6 - REPEATED FALLS SNOMED Code(s): 987011811 (4) Hypertension Current Visit: Yes Status: Acute Code(s): I10 - ESSENTIAL (PRIMARY) HYPERTENSION SNOMED Code(s): 43960935 (5) Hyperlipidemia Current Visit: Yes Status: Acute Code(s): E78.5 - HYPERLIPIDEMIA, UNSPECIFIED SNOMED Code(s): 41775574 (6) Paroxysmal atrial fibrillation Current Visit: Yes Status: Acute Code(s): I48.0 - PAROXYSMAL ATRIAL FIBRILLA TION SNOMED Code(s): 353236584 (7) COPD (chronic obstructive pulmonary disease) Current Visit: Yes Status: Acute Code(s): J44.9 - CHRONIC OBSTRUCTIVE PULMONARY DISEASE, UNSPECIFIED SNOMED Code(s): 70062764 (8) Coronary artery disease Current Visit: Yes Status: Acute Code(s): I25.10 - ATHSCL HEART DISEASE OF [place] CORONARY ARTERY W/O ANG PCTRS SNOMED Code(s): 07645470 (9) History of heart artery stent Current Visit: Yes Status: Acute Code(s): Z95.5 - PRESENCE OF CORONARY ANGIOPLASTY IMPLANT AND GRAFT SNOMED Code(s): 261532053 (10) Atherosclerosis Current Visit: Yes Status: Acute Code(s): I70.90 - UNSPECIFIED ATHEROSCLEROSIS SNOMED Code(s): 56554712 (11) Inflammatory arthritis Current Visit: Yes Status: Acute Code(s): M19.90 - UNSPECIFIED OSTEOARTHRITIS, UNSPECIFIED SITE SNOMED Code(s): 4802687 Plan: Plan: 1. Over the past month the patient has been experiencing severe pain at his kn ee that radiates down to his foot. He states the pain has been severe in his foot. The pain has been so severe he said you were unable to even blow air on his foot as it would exacerbate his pain. He had significant pain with palpation over his left knee and left foot. He states he was unable to ambulate on his left lower extremity due to the pain. He has fallen multiple times due to his left lower extremity pain. He presented to [facility] for further evaluation. Since his admission he was recently started on Solu- Medrol IV. He states since that time his symptoms have dramatically improved. He was able to ambulate to the restroom without any significant difficulty. He has good range of motion of his left knee and left ankle without difficulty. He states for the first time in a month he has been able to ambulate on his left lower extremity without significant difficulty. I am able to palpate his left knee, calf, ankle, and foot without any pain. He has had multiple imaging modalities taken of the left foot, tibia, and fibula and knee without evidence of any acute fracture. Given his significant improvement with IV steroid medication, we recommend he c ontinue his steroid medication until he is ready for discharge and then be discharged home on a prednisone taper. Given his significant improvement of his symptoms we would not currently plan for further imaging or any acute surgical intervention or treatment during his admission to the hospital. Patient states this is the best his left lower extremity has felt over the past month. He would like to continue with conservative treatment as well. Currently, we will plan to have him follow-up in outpatient setting on an as-needed basis. Patient is cleared for discharge from orthopedic standpoint. 2. We will currently plan to consult Dr. Chen in vascular surgery for further evaluation. Patient does follow with him in the outpatient setting. He states he has new vascular appearing lesions at his left foot and ankle are new. He was scheduled to follow with Dr. Chen in December 2023. 3. Patient will continue to be seen and examined by medicine for his other medical diagnoses. Time with Patient: Greater than 30 (Including obtaining history, physical examination, reviewing of imaging, and dictation.)
[2023-12-18] MEDS: methylPREDNISolone SOD SUCCI 125 MG/2 ML VIAL IV SCH ×2 (18:43→23:04)
[2023-12-18] MEDS: ATORVASTATIN 20 MG TAB PO SCH (20:18)
[2023-12-19] MEDS: LEVOTHYROXINE 50 MCG TAB PO SCH (05:35)
[2023-12-19 07:17] LABS: INR 4.1 (<1.2); Prothrombin Time 39.8 sec (10.0-12.5)
[2023-12-19] MEDS: LOSARTAN 50 MG TAB PO SCH (08:05)
[2023-12-19] MEDS: FLUTICASONE 50MCG/SPRAY NASAL 16GM EA NOSTRIL SCH (08:05)
[2023-12-19] MEDS: FINASTERIDE 5 MG TAB PO SCH (08:05)
[2023-12-19] MEDS: FAMOTIDINE 20 MG TAB PO SCH (08:05)
[2023-12-19] MEDS: hydroCHLOROthiazide 25 MG TAB PO SCH (08:05)
[2023-12-19] MEDS: BUMETANIDE 0.5 MG TABLET PO SCH (08:05)
[2023-12-19] MEDS: methylPREDNISolone SOD SUCCI 125 MG/2 ML VIAL IV SCH (08:06)
[2023-12-19] MEDS: TAMSULOSIN 0.4 MG CAP.ER.24H PO SCH (08:06)
[2023-12-19] MEDS: traMADol 50 MG TAB PO SCH (08:06)
[2023-12-19 08:20] VITALS: BP 144/71; PULSE 55; RESP 17; TEMP 97.6
[2023-12-19] MEDS: IPRATROPIUM-ALBUTEROL 3 ML NEB INHALATION SCH ×2 (09:34→12:36)
--- NOTE | 2023-12-19 16:23 | P.DS ---
Providers Date of admission: 12/17/23 14:57 Expected date of discharge: 12/19/23 Attending physician: Luz Napoles DO Consults: 12/17/23 15:08 Consult Physician Routine Consulting Provider: Fausto Tatum Consult Reason/Comments: polyarthritis Do you want consulting provider notified?: Yes 12/18/23 18:26 Consult Physician Routine Consulting Provider: Samuel Chen Consult Reason/Comments: vascular sclerosis; vascular appearing lesions left LE; Established Patient Do you want consulting provider notified?: Yes, Notify in am Primary care physician: Kike [facility] [place] [facility] Course: Discharge Diagnosis: Left foot pain, redness and swelling. 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 Patient started on IV steroids with Solu-Medrol and was also evaluated by orthopedic surgery team exhibited significant improvement with near full resolution of symptoms. After experiencing nearly full improvement of symptoms, vascular surgery was contacted and stated patient may follow-up in their office as scheduled. Patient discharged home on Medrol dose taper and to follow-up as needed with orthopedic surgery team. Left knee pain, resolved fully Recurrent falls, difficulty with balance and ambulation secondary to above. Patient ambulating without any difficulties at this time after initiation of IV steroids. Supratherapeutic INR. Secondary to supratherapeutic INR of 4.1, patient was instructed to hold his Coumadin for 2 days and resume at a lower dose of 3 mg daily with repeat INR in 3 days with results to be sent to PCP and vascular surgeon for follow-up and management. High anion gap metabolic acidosis Prerenal azotemia History of CAD with stents. Continue cardiac medication regimen with atorvastatin 20 mg nightly, bumetanide 0.5 mg daily, hydrochlorothiazide 25 mg daily, losartan 50 mg daily, and secondary to supratherapeutic INR patient was instructed to hold his Coumadin for 2 days and resume at a lower dose of 3 mg daily with repeat INR in 3 days. Hypertension Paroxysmal atrial fibrillation Hyperlipidemia Hypothyroidism Continue daily medication regimen with levothyroxine 50 mcg daily. COPD not in acute exacerbation Hospital Course: Patient is a very pleasant 88-year-old male with a past medical history of CAD with stents, Atrial fibrillation on anticoagulation with Coumadin, hypertension, hyperlipidemia, hypothyroidism and COPD. Patient reports that on December 02 he knelt down on the floor to fix his heater and while kneeling on the ground he began experiencing significant pain in his left knee. Patient reports he stood up but continued to have significant pain in his left knee and difficulties walking. Patient states since this time he has continued to have worsening pain which radiated down into his left foot. Patient reports due to the significant pain he has had a hard time keeping his balance and has experienced multiple falls and overall unsteady balance. Patient reports about 5 days ago or so he developed significant redness in his left foot and inability to place any weight on foot due to significant pain. He denies any numbness or tingling. Denies any open wounds or injuries obtained to left foot or knee. He denies any fevers, chills, diaphoresis, headache, lightheadedness, dizziness, chest pain, palpitations, shortness of breath, or experiencing any numbness or tingling in his extremities. Patient underwent full evaluation in the emergency department. Vital signs upon arrival blood pressure 125/86, heart rate 63, respiratory rate 16, temp 99.2 F, SpO2 of 93% on room air. Labs completed and reviewed. CBC unremarkable with WBC count of 10.2. BMP showing mild prerenal azotemia with BUN of 23 otherwise normal findings. Liver profile showing hyperbilirubinemia with bilirubin of 2.3 otherwise normal findings. CRP elevated at 17.9. CT head and cervical spine completed negative for acute process showing diffuse degenerative disc changes and foraminal stenosis of cervical spine and chronic appearing periventricular white matter ischemic changes and suspected old subcortical ischemic changes and right parietal lobe. x-ray left foot completed showing no evidence of acute fractures revealing severe degenerative changes throughout the joints of the left foot with a remote second metatarsal fracture with complete osseous fusion. 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 Patient admitted under our services with consultation to orthopedic surgery. He was started on IV steroids with Solu-Medrol and was also evaluated by orthopedic surgery team exhibited significant improvement with near full resolution of symptoms. After experiencing nearly full improvement of symptoms, vascular surgery was contacted and stated patient may follow-up in their office as scheduled. Patient discharged home on Medrol dose taper and to follow-up as needed with orthopedic surgery team. Secondary to continued supratherapeutic INR of 4.1 with no signs/symptoms of bleeding, patient was instructed to hold his Coumadin for 2 days after discharge and resume at a lower dose of 3 mg daily with repeat INR in 3 days with results to be sent to PCP and vascular surgeon for follow-up and management. Physical exam: Vital signs reviewed and stable. General: Nontoxic, no distress and appears stated age. Derm: Skin warm and dry, normal coloration for ethnicity. Head: Atraumatic, normocephalic and symmetric. Eyes: EOMs intact, no lid lag, and anicteric sclera Mouth: no lip lesions, mucus membranes moist Cardiovascular: regular rate and rhythm with normal S1S2, systolic murmur, positive posterior tibial pulses bilaterally, and cap refill < 2 seconds. Lungs: Respirations even, regular, and unlabored on room air. Lungs slightly diminished with soft expiratory wheezes. Abdominal: soft, nontender to palpation, no guarding, no appreciable orga nomegaly Ext: ROM intact. No gross muscle atrophy, no edema, no contractures. Pt has palpable lump on left foot near medial tarsometatarsal joint with vascular appearing lesion as well as an area of vasculitis appearing lesion to left foot MCP joint of left foot second digit. No open wounds or drainage. Swelling completely improved and patient reports resolution of pain now able to bear weight on left foot and ambulate without difficulties. Neuro: Speech clear, face symmetrical and CN II-XII grossly intact with no noted focal neuro deficits Psych: Alert and oriented to person, place, time, and situation. Appropriate and pleasant affect. A total of 38 minutes of time were spent preparing this complex discharge summary. Pt was discharged on 12/19/2023 at 11:52 AM. Patient was seen independently by Nurse Practitioner. This document was prepared using [employer] dictation software. Please allow for errors in business law professor while rare they do occur. Pardeep Pretty NP rendered care for this patient independently, reviewed the findings and plan as documented in the note above. I did not physically speak with or examine the patient on this date. Patient Condition at Discharge: Stable Plan - Discharge Summary New Discharge Prescriptions: New methylPREDNISolone Dose Pack [Medrol Dose Pack] 4 mg PO DIRECTED #21 tab HYDROcodone/APAP 5-325MG [[place] 5-325] 1 each PO Q4HR PRN #18 tab PRN Reason: Moderate Pain (Scale 4 To 6) Continue hydroCHLOROthiazide 25 mg PO DAILY Finasteride [Proscar] 5 mg PO DAILY Tamsulosin HCl [Flomax] 0.8 mg PO DAILY Cholecalciferol (Vitamin D3) [Vitamin D3 (125 MCG = 5,000 IU)] 125 mcg PO DA JEANNETTE Fluticasone Nasal [place] [Flonase Nasal [place]] 1 spr EA NOSTRIL DAILY traMADol HCL 50 mg PO BID Simvastatin [Zocor] 40 mg PO HS Famotidine 20 mg PO DAILY Bumetanide [BUMEX] 0.5 mg PO DAILY Losartan [Cozaar] 50 mg PO DAILY Levothyroxine Sodium [Synthroid] 50 mcg PO DAILY Changed Warfarin [Coumadin] 3 mg PO DAILY #0 Discontinued Celecoxib [CeleBREX] 100 mg PO BID Diclofenac Sodium Gel [Voltaren 1% Gel] 2 gm TOPICAL QID Discharge Medication List Finasteride [Proscar] 5 mg PO DAILY 06/12/21 [History] Tamsulosin HCl [Flomax] 0.8 mg PO DAILY 06/12/21 [History] hydroCHLOROthiazide 25 mg PO DAILY 06/12/21 [History] Famotidine 20 mg PO DAILY 01/31/22 [History] Bumetanide [BUMEX] 0.5 mg PO DAILY 12/17/23 [History] Cholecalciferol (Vitamin D3) [Vitamin D3 (125 MCG = 5,000 IU)] 125 mcg PO DAILY 12/17/23 [History] Fluticasone Nasal [place] [Flonase Nasal [place]] 1 spr EA NOSTRIL DAILY 12/17/23 [History] Levothyroxine Sodium [Synthroid] 50 mcg PO DAILY 12/17/23 [History] Losartan [Cozaar] 50 mg PO DAILY 12/17/23 [History] Simvastatin [Zocor] 40 mg PO HS 12/17/23 [History] traMADol HCL 50 mg PO BID 12/17/23 [History] HYDROcodone/APAP 5-325MG [[place] 5-325] 1 each PO Q4HR PRN #18 tab 12/19/23 [Rx] Warfarin [Coumadin] 3 mg PO DAILY #0 12/19/23 [Rx] methylPREDNISolone Dose Pack [Medrol Dose Pack] 4 mg PO DIRECTED #21 tab 12/19/23 [Rx] Follow up Appointment(s)/Referral(s): Samuel Chen MD [STAFF PHYSICIAN] - 1 Week (as scheduled out pt ) Kike Mckoy DO [Primary Care Provider] - 1-2 days (please call for an appointment ) Fausto Tatum MD [STAFF PHYSICIAN] - As Needed Ambulatory/Diagnostic Orders: Prothrombin Time INR [LAB.AMB] Location: None Selected Patient Instructions/Handouts: Arthralgia (ED) Activity/Diet/Wound Care/Special Instructions: Activity: As tolerated. Take breaks as needed. Diet: Heart healthy and carb consistent diet. Avoid salts, or foods with hidden salts such as canned or boxed foods and frozen dinners. Extra salt makes your heart work harder and traps the fluid in your body for longer. Special Instructions: Take all of your medications as directed and remember to keep all of your doctor's appointments and follow-up as needed. HOLD your Coumadin (Warfarin) for an additional 2 days and then may resume at lower dosage of 3 mg daily. You will need to have repeat labs in 3 days to monitor your INR more closely. Thank you for allowing us to participate in your care, it was truly a pleasure having you for our patient!!! Discharge Disposition: HOME SELF-CARE
[2023-12-19] MEDS ORDERED: WARFARIN 0.5 MG TAB PO ONE (18:00)
== END 2023-12-19 14:03 | disposition home or self-care (01) ==
LOC: EC 10:12 → 6NMEDSUR 14:57
PROVIDERS: ADMIT Internal Medicine; ATTEND Internal Medicine
DX: M79.672 Pain in left foot (principal); M25.562 Pain in left knee; R22.42 Localized swelling, mass and lump, left lower limb; I99.8 Other disorder of circulatory system; R26.2 Difficulty in walking, not elsewhere classified; I48.0 Paroxysmal atrial fibrillation; M06.4 Inflammatory polyarthropathy; R79.1 Abnormal coagulation profile; I25.10 Atherosclerotic heart disease of native coronary artery without angina pectoris; E78.5 Hyperlipidemia, unspecified; K21.9 Gastro-esophageal reflux disease without esophagitis; I10 Essential (primary) hypertension; E03.9 Hypothyroidism, unspecified; N40.0 Benign prostatic hyperplasia without lower urinary tract symptoms; J44.9 Chronic obstructive pulmonary disease, unspecified; R79.89 Other specified abnormal findings of blood chemistry; E87.20 Acidosis, unspecified; I25.2 Old myocardial infarction; Z87.891 Personal history of nicotine dependence; Z91.81 History of falling; Z95.5 Presence of coronary angioplasty implant and graft; Z79.1 Long term (current) use of non-steroidal anti-inflammatories (NSAID); Z79.01 Long term (current) use of anticoagulants; Z79.890 Hormone replacement therapy; Z79.899 Other long term (current) drug therapy; Z88.5 Allergy status to narcotic agent
CPT/HCPCS: 96376 ×2; 96375; 96374; 99285; 36415; 94640; 97162; 97166; 80053 ×2; 85652 ×2; 83735; 84550; 85025; 85027; 85610 ×3; 86140 ×2; 73590; 73630; 72125; 70450; G0378 ×3; S0138 ×2; J2930 ×2; J1885; J7512 ×2

== ENCOUNTER → 2024-03-05 | Outpatient (CLI) | payer MEDICARE, OTHER ==
--- NOTE | 2024-03-05 15:48 | CT ---
EXAMINATION TYPE: CT lumbar spine wo con DATE OF EXAM: 03/05/2024 COMPARISON: 01/09/2019 HISTORY: Chronic lower back pain, states that he fractured lumbar region x [address] DLP: 890 mGycm CONTRAST: None TECHNIQUE: CT of the lumbar spine is performed on a spiral scan at 3 mm thick sections. Reconstructed images are performed in the coronal and sagittal planes. FINDINGS: Vacuum disc phenomenon is noted at L3-4 and L4-5. Minimal grade 1 spondylolisthesis of L4 a nteriorly on L5 is present. Disc heights appear preserved. Vertebral body heights are preserved. Post erior spinal lamellar line is intact. T12-L1: No focal disc herniation or significant disc bulge is evident. No spinal canal stenosis or neural foraminal stenosis is present. L1-L2: No focal disc herniation or significant disc bulge is evident. No spinal canal stenosis or n eural foraminal stenosis is present L2-L3: Mild disc bulge has anterior thecal sac contact. Mild ligamentum flavum laxity is posterior la teral thecal sac compression. No spinal canal stenosis. L3-L4: Facet hypertrophy is present. There is mild disc bulge with anterior thecal sac compression. L igamentum flavum laxity is present with posterior lateral thecal sac compression. Findings are contri buting to spinal canal stenosis. Correlate with right-sided symptoms. L4-L5: Marked facet hypertrophy is present. Ligamentum flavum laxity is present. Broad-based disc bul ge and disc uncovering is contributing to severe spinal canal stenosis. Severe lateral recess stenosi s present from facet hypertrophy. L5-S1: No focal disc herniation or significant disc bulge is evident. No spinal canal stenosis or n eural foraminal stenosis is present IMPRESSION: 1. Severe spinal canal stenosis L4-5 due to disc bulging and ligamentum flavum laxity. Disc uncoverin g is present at this level from grade 1 spondylolisthesis. 2. Spinal canal narrowing due to ligamentum flavum laxity and disc bulging L3-4.
== END | disposition home or self-care (01) ==
LOC: RADCTMAIN 14:46
PROVIDERS: ATTEND Physical Medicine & Rehabilitation
DX: M51.36 Other intervertebral disc degeneration, lumbar region (principal); M43.16 Spondylolisthesis, lumbar region; M48.061 Spinal stenosis, lumbar region without neurogenic claudication; M16.0 Bilateral primary osteoarthritis of hip
CPT/HCPCS: 72131

== ENCOUNTER → 2024-04-01 | Outpatient (CLI) | payer MEDICARE, OTHER ==
[2024-04-01 11:33] LABS: INR 1.1 (<1.2); Prothrombin Time 11.5 sec (10.0-12.5)
== END | disposition home or self-care (01) ==
LOC: LABWHC1 09:41
PROVIDERS: ATTEND Physical Medicine & Rehabilitation
DX: M16.0 Bilateral primary osteoarthritis of hip (principal); M54.16 Radiculopathy, lumbar region; M43.16 Spondylolisthesis, lumbar region; M48.062 Spinal stenosis, lumbar region with neurogenic claudication; M47.812 Spondylosis without myelopathy or radiculopathy, cervical region; M47.816 Spondylosis without myelopathy or radiculopathy, lumbar region; M54.2 Cervicalgia; M54.12 Radiculopathy, cervical region; R20.2 Paresthesia of skin
CPT/HCPCS: 36415; 85610

== ENCOUNTER → 2024-09-02 | Outpatient (CLI) | payer MEDICARE, OTHER ==
[2024-09-02 15:34] LABS: INR 1.07 sec (0.93-1.11); Prothrombin Time 11.5 sec (9.9-11.9)
== END | disposition home or self-care (01) ==
LOC: LABPAT 09:37 → LABWHC1 09:37
PROVIDERS: ATTEND Physical Medicine & Rehabilitation
DX: Z01.818 Encounter for other preprocedural examination
CPT/HCPCS: 85610

== ENCOUNTER → 2024-12-16 | Outpatient (CLI) | payer MEDICARE, OTHER ==
[2024-12-16 19:25] LABS: Partial Thromboplastin Time 39.5 sec (22.0-30.0)
== END | disposition home or self-care (01) ==
LOC: LABWHC1 12:03
PROVIDERS: ATTEND Physical Medicine & Rehabilitation
DX: M48.062 Spinal stenosis, lumbar region with neurogenic claudication (principal); Z79.01 Long term (current) use of anticoagulants
CPT/HCPCS: 36415; 85610; 85730

== ENCOUNTER → 2025-04-06 | Outpatient (CLI) | payer MEDICARE, OTHER ==
[2025-04-06 10:06] LABS: Partial Thromboplastin Time 39.8 sec (22.0-30.0); Prothrombin Time 11.3 sec (10.0-12.5)
== END | disposition home or self-care (01) ==
LOC: LABWHC1 09:33
PROVIDERS: ATTEND Physical Medicine & Rehabilitation
DX: Z51.81 Encounter for therapeutic drug level monitoring (principal); Z79.01 Long term (current) use of anticoagulants
CPT/HCPCS: 36415; 85610; 85730